=== PATIENT | female | born 1990 | race Caucasian/White ===

== ENCOUNTER 2020-04-13 11:44 | Inpatient (IN) | payer BC, MEDICARE, MEDICAID ==
[~2020-04-13] VITALS: Ht 170.2 cm; Wt 70.9 kg
[~2020-04-13 11:44] MED LIST: ARIP10TA15 PO; ARIP400S3 IM; DIPH25CA83 PO; DOCU-28 PO; HALO5TAB PO; PALI117D IM; PNV11TAB PO
[2020-04-13] MEDS ORDERED: loperamide 2mg capsule PO PRN (19:20)
[2020-04-13] MEDS ORDERED: NICOTINE POLACRILEX 2 MG LOZENGE BC PRN (19:20)
[2020-04-13] MEDS ORDERED: mag hydrox/Alum hydrox/simeth 30ml oral suspension PO PRN (19:20)
[2020-04-13] MEDS ORDERED: acetaminophen 325mg tablet PO PRN (19:20)
[2020-04-13] MEDS ORDERED: divalproex sodium 500mg tablet.DR PO SCH (20:00)
[2020-04-13 21:00] LABS: BASOPHILS % (AUTO) 0.5 % (0-1); EOSINOPHILS % (AUTO) 0.2 % (0-6); HEMOGLOBIN 13.8 g/dl (12.0-16.0); LYMPHOCYTES % (AUTO) 33.5 % (21-51); MEAN CORPUSCULAR HGB CONC 33.8 g/dL (33.0-36.5); MEAN CORPUSCULAR VOLUME 88.8 FL (78-98); MEAN PLATELET VOLUME 6.1 FL (7.4-10.4); MONOCYTES # (AUTO) 0.8 X10'3 (0-0.9); NEUTROPHILS # (AUTO) 5.1 X10'3 (1.8-7.7); NEUTROPHILS % (AUTO) 56.8 % (42-75); PLATELET COUNT 433 X10'3 (140-440); RED BLOOD COUNT 4.61 X10'6 (4.20-5.60); WHITE BLOOD COUNT 8.9 X10'3 (4.5-11.0)
[2020-04-13] MEDS ORDERED: mesalamine 400 mg capsule.DR PO SCH ×2 (21:00→22:31)
[2020-04-13] MEDS: ibuprofen 200mg tablet PO PRN (21:16)
[2020-04-13 21:23] VITALS: BP 130/73
[2020-04-13 21:37] LABS: ALANINE AMINOTRANSFERASE 17 U/L (12-78); ALBUMIN 3.2 G/DL (3.4-5.0); ALBUMIN/GLOBULIN RATIO 0.7 (1.1-1.5); ALKALINE PHOSPHATASE 101 IU/L (46-116); ANION GAP 5 (8-16); ASPARTATE AMINO TRANSFERASE 7 U/L (10-37); BILIRUBIN,TOTAL 0.2 MG/DL (0.1-1.0); BLOOD UREA NITROGEN 7 MG/DL (7-18); BUN/CREATININE RATIO 8.8 (6.6-38.0); CALCIUM 8.8 MG/DL (8.5-10.1); CHLORIDE 106 MMOL/L (99-107); POTASSIUM 4.1 MMOL/L (3.5-5.1); SODIUM 142 MMOL/L (135-145); TOTAL CARBON DIOXIDE 30.7 MMOL/L (24-32); TOTAL PROTEIN 7.7 G/DL (6.4-8.2); eGFR 85 ML/MIN
[2020-04-13 21:44] LABS: GLUCOSE 83 MG/DL (70-104); VALPROATE 69 UG/ML (50-100)
[2020-04-13] MEDS ORDERED: clozapine 25mg tablet PO ONE (21:45)
[2020-04-13 22:27] LABS: CREATINE KINASE 29 U/L (26-192)
[2020-04-13] MEDS ORDERED: divalproex 250mg tablet, delayed-release PO ONE (22:35)
[2020-04-13] MEDS: traZODone 50mg tablet PO PRN (22:49)
[2020-04-13] MEDS: LORazepam 1 MG tablet PO PRN (22:50)
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
[2020-04-14] MEDS: mesalamine 400 mg capsule.DR PO SCH ×3 (07:00→17:00)
[2020-04-14 08:00] VITALS: BP 81/60
[2020-04-14] MEDS ORDERED: ARIPIPRAZOLE 10 MG TABLET PO SCH (08:00)
[2020-04-14] MEDS ORDERED: haloperidol 5mg tablet PO SCH (08:00)
[2020-04-14] MEDS: diphenhydrAMINE 25mg capsule PO SCH ×2 (08:38→21:06)
[2020-04-14] MEDS: divalproex 250mg tablet, delayed-release PO SCH ×2 (08:38→21:13)
[2020-04-14] MEDS: docusate sod 100mg capsule PO SCH ×2 (08:38→21:06)
[2020-04-14] MEDS: nitrofuran/nitrofuran macrocrysal 100 MG capsule PO SCH ×2 (08:44→17:48)
[2020-04-14] MEDS: nicotine 21mg patch - 24 hr TD SCH (08:47)
--- NOTE | 2020-04-14 14:20 | NUR ---
Malnutrition consult, patient eating 100% so far of regular diet. Great appetite. No edema. Normal muscle strength. Does not appear to have malnutrition at this time. Addendum: 04/14/20 at [address] Amended: Links added.
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
[2020-04-14 21:00] VITALS: BP 110/71
[2020-04-14] MEDS ORDERED: clozapine 25mg tablet PO SCH (21:00)
[2020-04-14] MEDS: mesalamine 1.2gm ER tablet PO SCH (21:06)
[2020-04-14] MEDS: polyethylene glycol 3350 17gm powd pack PO SCH (21:07)
[2020-04-14] MEDS: LORazepam 1 MG tablet PO SCH (21:07)
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
[2020-04-15] MEDS: mesalamine 400 mg capsule.DR PO SCH (07:00)
[2020-04-15] MEDS: diphenhydrAMINE 25mg capsule PO SCH ×3 (07:36→20:00)
[2020-04-15] MEDS: mesalamine 1.2gm ER tablet PO SCH ×2 (07:36→21:00)
[2020-04-15] MEDS: docusate sod 100mg capsule PO SCH ×3 (07:36→21:00)
[2020-04-15] MEDS: LORazepam 1 MG tablet PO SCH ×3 (07:37→21:00)
[2020-04-15] MEDS: divalproex 250mg tablet, delayed-release PO SCH ×2 (07:37→21:00)
[2020-04-15] MEDS: nicotine 21mg patch - 24 hr TD SCH ×2 (07:37→08:00)
[2020-04-15] MEDS: nitrofuran/nitrofuran macrocrysal 100 MG capsule PO SCH ×3 (07:43→16:45)
[2020-04-15 08:00] VITALS: BP 97/63
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
[2020-04-15 19:00] VITALS: BP 118/75
[2020-04-15] MEDS: LORazepam 1 MG tablet PO PRN (20:57)
[2020-04-15] MEDS ORDERED: clozapine 25mg tablet PO SCH (21:00)
[2020-04-15] MEDS: polyethylene glycol 3350 17gm powd pack PO SCH (21:01)
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
[2020-04-16 08:00] VITALS: BP 97/58
[2020-04-16] MEDS: docusate sod 100mg capsule PO SCH ×2 (08:47→20:00)
[2020-04-16] MEDS: LORazepam 1 MG tablet PO SCH (08:47)
[2020-04-16] MEDS: divalproex 250mg tablet, delayed-release PO SCH ×2 (08:47→20:46)
[2020-04-16] MEDS: diphenhydrAMINE 25mg capsule PO SCH (08:47)
[2020-04-16] MEDS: mesalamine 1.2gm ER tablet PO SCH ×2 (08:48→20:47)
[2020-04-16] MEDS: nitrofuran/nitrofuran macrocrysal 100 MG capsule PO SCH ×2 (08:48→17:41)
[2020-04-16] MEDS: nicotine 21mg patch - 24 hr TD SCH (10:55)
[2020-04-16] MEDS: diphenhydrAMINE 25mg capsule PO PRN (14:38)
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
[2020-04-16 20:07] VITALS: BP 108/62
[2020-04-16] MEDS: polyethylene glycol 3350 17gm powd pack PO SCH (20:47)
[2020-04-16] MEDS: clozapine 25mg tablet PO SCH (20:47)
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
[2020-04-17] MEDS: docusate sod 100mg capsule PO SCH ×2 (07:39→20:39)
[2020-04-17] MEDS: divalproex 250mg tablet, delayed-release PO SCH ×2 (07:39→20:39)
[2020-04-17] MEDS: mesalamine 1.2gm ER tablet PO SCH ×2 (07:39→20:39)
[2020-04-17] MEDS: nicotine 21mg patch - 24 hr TD SCH (07:40)
[2020-04-17 08:00] VITALS: BP 104/69
[2020-04-17] MEDS: nitrofuran/nitrofuran macrocrysal 100 MG capsule PO SCH ×2 (09:04→16:51)
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
[2020-04-17 20:00] VITALS: BP 112/73
[2020-04-17] MEDS: polyethylene glycol 3350 17gm powd pack PO SCH (20:38)
[2020-04-17] MEDS: clozapine 25mg tablet PO SCH (20:39)
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
[2020-04-18] MEDS: nitrofuran/nitrofuran macrocrysal 100 MG capsule PO SCH ×2 (08:04→17:53)
[2020-04-18] MEDS: divalproex 250mg tablet, delayed-release PO SCH ×2 (08:04→20:41)
[2020-04-18] MEDS: docusate sod 100mg capsule PO SCH ×3 (08:04→20:30)
[2020-04-18] MEDS: mesalamine 1.2gm ER tablet PO SCH ×2 (08:04→20:30)
[2020-04-18] MEDS: nicotine 21mg patch - 24 hr TD SCH (11:18)
--- NOTE | 2020-04-18 11:24 | NUR ---
Veronica from [facility] called to check on d/c plan (ph# [phone]). Informed her that [facility] office will be seeking placement once Nury is stabilized. Customer Support Executive will fax a packet to [facility] as Nury appears to be fairly stable and cooperative. TOM Rene
--- NOTE | 2020-04-18 12:15 | NUR ---
Initial: Pt admit with schizoaffective disorder. Pt with abrasions to right 4th, 5th, and left 5th toe, almost resolved per wound care notes. Currently on a regular diet documented with 75-100% PO intake meeting nutrient needs. LBM 04/17. No nutrition diagnosis at this time. Will continue to follow. Recommendations: 1) Continue regular diet 2) Dorr food preferences: No turkey or pork per diet order 3) Routine bowel care 4) Scaled weights per rx Addendum: 04/18/20 at [address] Amended: Links added.
[2020-04-18] MEDS: diphenhydrAMINE 25mg capsule PO PRN (14:33)
--- NOTE | 2020-04-18 15:19 | NUR ---
PLACEMENT Spoke to Nury's Public Guardian, Bria (ph# [phone]), who reported they will be seeking [facility] placement. Informed her of Nury's progress. Faxed placement packet to [facility] office. TOM Rene
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
[2020-04-18 20:01] VITALS: BP 113/69
[2020-04-18] MEDS: polyethylene glycol 3350 17gm powd pack PO SCH (20:30)
[2020-04-18] MEDS: clozapine 25mg tablet PO SCH (20:30)
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
[2020-04-19 07:48] VITALS: BP 100/63
[2020-04-19] MEDS: nicotine 21mg patch - 24 hr TD SCH (08:36)
[2020-04-19] MEDS: docusate sod 100mg capsule PO SCH ×2 (08:37→20:00)
[2020-04-19] MEDS: divalproex 250mg tablet, delayed-release PO SCH ×2 (08:37→20:25)
[2020-04-19] MEDS: mesalamine 1.2gm ER tablet PO SCH ×2 (08:37→20:26)
[2020-04-19] MEDS: nitrofuran/nitrofuran macrocrysal 100 MG capsule PO SCH ×2 (08:37→17:12)
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
[2020-04-19 19:58] VITALS: BP 124/81
[2020-04-19] MEDS: clozapine 25mg tablet PO SCH (20:26)
[2020-04-19] MEDS: polyethylene glycol 3350 17gm powd pack PO SCH (20:29)
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
[2020-04-20 06:53] LABS: BASOPHILS # (AUTO) 0.1 X10'3 (0-0.2); MEAN PLATELET VOLUME 6.3 FL (7.4-10.4); MONOCYTES # (AUTO) 0.5 X10'3 (0-0.9)
[2020-04-20 06:56] LABS: BASOPHILS % (AUTO) 0.7 % (0-1); EOSINOPHILS % (AUTO) 0.1 % (0-6); HEMOGLOBIN 12.4 g/dl (12.0-16.0); LYMPHOCYTES # (AUTO) 4.7 X10'3 (1.1-4.8); MEAN CORPUSCULAR HEMOGLOBIN 29.8 PG (27.0-31.0); MEAN CORPUSCULAR HGB CONC 33.6 g/dL (33.0-36.5); MEAN CORPUSCULAR VOLUME 88.6 FL (78-98); MONOCYTES % (AUTO) 6.4 % (2-12); NEUTROPHILS # (AUTO) 2.8 X10'3 (1.8-7.7); NEUTROPHILS % (AUTO) 34.8 % (42-75); PLATELET COUNT 261 X10'3 (140-440); RED BLOOD COUNT 4.17 X10'6 (4.20-5.60); RED CELL DISTRIBUTION WIDTH 14.9 % (11.5-14.5); WHITE BLOOD COUNT 8.1 X10'3 (4.5-11.0)
[2020-04-20 07:48] VITALS: BP 91/60
[2020-04-20 07:52] LABS: LYMPHOCYTES % (MANUAL) 57 % (21-51); NEUTROPHILS % (MANUAL) 32 % (42-75); TOTAL CELLS COUNTED 100
[2020-04-20 07:53] LABS: PLATELET ESTIMATE NORMAL
[2020-04-20] MEDS: divalproex 250mg tablet, delayed-release PO SCH ×2 (08:28→20:27)
[2020-04-20] MEDS: docusate sod 100mg capsule PO SCH ×2 (08:28→20:27)
[2020-04-20] MEDS: nitrofuran/nitrofuran macrocrysal 100 MG capsule PO SCH ×2 (08:28→17:17)
[2020-04-20] MEDS: mesalamine 1.2gm ER tablet PO SCH ×2 (08:28→20:27)
[2020-04-20] MEDS: nicotine 21mg patch - 24 hr TD SCH (08:29)
[2020-04-20] MEDS: diphenhydrAMINE 25mg capsule PO PRN ×2 (12:36→21:07)
[2020-04-20] MEDS: acetaminophen 325mg tablet PO PRN (17:27)
[2020-04-20 19:56] VITALS: BP 110/81
[2020-04-20] MEDS: polyethylene glycol 3350 17gm powd pack PO SCH (20:26)
[2020-04-20] MEDS: clozapine 25mg tablet PO SCH (20:27)
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
[2020-04-21 07:46] VITALS: BP 98/52
[2020-04-21] MEDS: nicotine 21mg patch - 24 hr TD SCH (08:20)
[2020-04-21] MEDS: divalproex 250mg tablet, delayed-release PO SCH ×2 (08:21→20:28)
[2020-04-21] MEDS: nitrofuran/nitrofuran macrocrysal 100 MG capsule PO SCH ×2 (08:21→17:30)
[2020-04-21] MEDS: docusate sod 100mg capsule PO SCH ×2 (08:21→20:29)
[2020-04-21] MEDS: mesalamine 1.2gm ER tablet PO SCH ×2 (08:32→20:28)
[2020-04-21] MEDS: LORazepam 1 MG tablet PO PRN (16:09)
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
[2020-04-21] MEDS ORDERED: LORazepam 2 mg/ml vial ONE (16:30)
[2020-04-21] MEDS ORDERED: haloperidol lactate 5mg/ml inj ONE (16:31)
[2020-04-21] MEDS ORDERED: diphenhydrAMINE 50 mg/ml inj ONE (16:31)
[2020-04-21] MEDS: diphenhydrAMINE 25mg capsule PO PRN (16:50)
[2020-04-21] MEDS: polyethylene glycol 3350 17gm powd pack PO SCH (20:28)
[2020-04-21] MEDS: clozapine 100mg tablet PO SCH (20:28)
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
[2020-04-22 08:00] VITALS: BP 93/61
[2020-04-22] MEDS: mesalamine 1.2gm ER tablet PO SCH ×2 (08:24→20:16)
[2020-04-22] MEDS: docusate sod 100mg capsule PO SCH ×2 (08:24→20:16)
[2020-04-22] MEDS: nitrofuran/nitrofuran macrocrysal 100 MG capsule PO SCH ×2 (08:24→17:34)
[2020-04-22] MEDS: divalproex 250mg tablet, delayed-release PO SCH ×2 (08:24→20:16)
[2020-04-22] MEDS: nicotine 21mg patch - 24 hr TD SCH ×2 (08:25→09:20)
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
[2020-04-22] MEDS: LORazepam 1 MG tablet PO PRN (14:50)
[2020-04-22] MEDS: lactose-reduced food (Ensure High Protein) 237ml bottle PO SCH (18:11)
[2020-04-22] MEDS: hydrOXYzine 25 MG tablet PO PRN (18:38)
[2020-04-22 19:40] VITALS: BP 116/48
[2020-04-22] MEDS: clozapine 100mg tablet PO SCH (20:16)
[2020-04-22] MEDS: polyethylene glycol 3350 17gm powd pack PO SCH (20:16)
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
[2020-04-23 07:46] VITALS: BP 93/63
[2020-04-23] MEDS: divalproex 250mg tablet, delayed-release PO SCH ×2 (08:04→20:33)
[2020-04-23] MEDS: mesalamine 1.2gm ER tablet PO SCH ×2 (08:04→20:32)
[2020-04-23] MEDS: docusate sod 100mg capsule PO SCH ×2 (08:04→20:33)
[2020-04-23] MEDS: lactose-reduced food (Ensure High Protein) 237ml bottle PO SCH ×3 (08:05→18:00)
[2020-04-23] MEDS: hydrOXYzine 25 MG tablet PO PRN (08:05)
[2020-04-23] MEDS: nitrofuran/nitrofuran macrocrysal 100 MG capsule PO SCH ×2 (08:06→17:28)
[2020-04-23] MEDS: diphenhydrAMINE 25mg capsule PO PRN ×2 (15:58→17:28)
[2020-04-23] MEDS: OLANZapine 5mg rapidly disint. tablet PO PRN (15:59)
[2020-04-23] MEDS: acetaminophen 325mg tablet PO PRN (17:31)
[2020-04-23 20:00] VITALS: BP 106/72
[2020-04-23] MEDS: polyethylene glycol 3350 17gm powd pack PO SCH (20:32)
[2020-04-23] MEDS: clozapine 100mg tablet PO SCH (20:33)
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
[2020-04-24] MEDS: mesalamine 1.2gm ER tablet PO SCH ×2 (07:44→20:07)
[2020-04-24] MEDS: divalproex 250mg tablet, delayed-release PO SCH ×2 (07:44→20:08)
[2020-04-24] MEDS: nicotine 21mg patch - 24 hr TD SCH (07:44)
[2020-04-24] MEDS: docusate sod 100mg capsule PO SCH ×2 (07:44→20:00)
[2020-04-24] MEDS: hydrOXYzine 25 MG tablet PO PRN ×2 (07:44→14:40)
[2020-04-24 08:00] VITALS: BP 114/68
[2020-04-24] MEDS: lactose-reduced food (Ensure High Protein) 237ml bottle PO SCH ×3 (08:00→18:02)
[2020-04-24] MEDS: nitrofuran/nitrofuran macrocrysal 100 MG capsule PO SCH ×2 (10:17→17:44)
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
[2020-04-24] MEDS: OLANZapine 5mg rapidly disint. tablet PO PRN (14:40)
[2020-04-24] MEDS: diphenhydrAMINE 25mg capsule PO PRN (15:38)
[2020-04-24] MEDS: acetaminophen 325mg tablet PO PRN (18:23)
[2020-04-24 19:35] VITALS: BP 102/58
[2020-04-24] MEDS: clozapine 100mg tablet PO SCH (20:07)
[2020-04-24] MEDS: polyethylene glycol 3350 17gm powd pack PO SCH ×2 (20:38→21:00)
[2020-04-24] MEDS: traZODone 50mg tablet PO PRN ×2 (22:13→23:07)
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
[2020-04-25 08:00] VITALS: BP 90/53
[2020-04-25] MEDS: docusate sod 100mg capsule PO SCH ×2 (08:13→20:14)
[2020-04-25] MEDS: nitrofuran/nitrofuran macrocrysal 100 MG capsule PO SCH ×2 (08:13→18:12)
[2020-04-25] MEDS: mesalamine 1.2gm ER tablet PO SCH ×2 (08:13→20:14)
[2020-04-25] MEDS: divalproex 250mg tablet, delayed-release PO SCH ×2 (08:13→20:15)
[2020-04-25] MEDS: nicotine 21mg patch - 24 hr TD SCH (08:16)
[2020-04-25] MEDS: lactose-reduced food (Ensure High Protein) 237ml bottle PO SCH ×3 (08:18→18:12)
--- NOTE | 2020-04-25 11:27 | NUR ---
Reassessment: Pt PO 75-100% avg meals and 100% ensure high proteins meeting needs. LBM 04/24. No nutrition concerns at this time. Will continue to monitor. Recommendations: 1) Continue regular diet 2) [place] food preferences: No turkey or pork per diet order 3) Routine bowel care 4) Scaled weights per rx Addendum: 04/25/20 at [address] Amended: Links added.
--- NOTE | 2020-04-25 12:36 | NUR ---
Wound Care by RN: Left 4th and 5th toe is completely healed. Right 4th toe is healing well. Small amount of drainage. Patient refused wound care but allowed saline and Band aide. Wound on right thigh is completely healed.
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
[2020-04-25 19:21] VITALS: BP 97/74
[2020-04-25] MEDS: clozapine 100mg tablet PO SCH (20:14)
[2020-04-25] MEDS: polyethylene glycol 3350 17gm powd pack PO SCH (20:15)
--- NOTE | 2020-04-25 21:34 | NUR ---
Pt removed nicotine patch
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
[2020-04-25] MEDS: diphenhydrAMINE 25mg capsule PO PRN (23:14)
[2020-04-25] MEDS: traZODone 50mg tablet PO PRN (23:14)
--- NOTE | 2020-04-26 03:02 | NUR ---
Pt had trouble sleeping requested trazadone and benadryl feeling "tired and annoyed"
[2020-04-26 07:59] VITALS: BP 87/57
[2020-04-26] MEDS: nitrofuran/nitrofuran macrocrysal 100 MG capsule PO SCH ×2 (08:11→17:53)
[2020-04-26] MEDS: docusate sod 100mg capsule PO SCH ×2 (08:11→20:32)
[2020-04-26] MEDS: mesalamine 1.2gm ER tablet PO SCH ×2 (08:11→20:32)
[2020-04-26] MEDS: divalproex 250mg tablet, delayed-release PO SCH ×2 (08:11→20:32)
[2020-04-26] MEDS: nicotine 21mg patch - 24 hr TD SCH (08:14)
[2020-04-26] MEDS: lactose-reduced food (Ensure High Protein) 237ml bottle PO SCH ×3 (08:14→17:53)
--- NOTE | 2020-04-26 10:00 | NUR ---
Group Therapy: Process Group This Clinicians goal for this process group were as follows: (1) Share psychoeducation about core beliefs and how these beliefs shapes how one views reality. (2) Compare and contrast how people with different core beliefs might interpret an identical situation differently. (3) Discuss how changing negative core beliefs to more balanced, helpful, and rational alternatives can lead to improved behaviors and mood. (4) Process Clients thoughts and reflections on this topic within the group milieu. Patient identified experiencing the following levels of anxiety, depression, and anger/irritability while present in the group milieu (0-low; 10-High). Anxiety: 01/01 Depression: 10/04 Anger/irritability: 12/02 Patient presented as properly oriented to person, place, and situation during the process group. Patient was dressed in a white t-shirt, with pink pants that were appropriate within the milieu. She briefly left the milieu on one occasion and returned wearing a pink, [employer], sweatshirt. Psychomotor activity was unremarkable. Patient's thought content was clear, and concrete. Patient's thought process was clear, coherent, and linear. This Clinician did not observe Patient responding to any internal stimuli during session. The rate, latency, and tone of Client's speech was within normal limits. Patient maintained regular eye contact with this Clinician. Patient presented in calm euthymic mood, with congruent affect during the process group. Patient presented as open and cooperative, and was verbally engaged and nonobtrusive within the group milieu. On one occasion, this Clinician asked the patients in the process group to identify a negative core belief, that they may identify with, or have identified with in the past. Patient stated, "I am weak," in response to this question. This Clinician spent some time addressing how a person who truly believed that they weak, either physically, or mentally, would respond to external stimuli that they may use to reinforce that negative core belief, as opposed to information that they may reject because it didn't align with their core belief that they were, "Weak." Jaron Negrete MA, AIR VALUE TESTER Addendum: 04/26/20 at 1143 by Jaron DARLING Amended: Links added.
[2020-04-26] MEDS: diphenhydrAMINE 25mg capsule PO PRN ×2 (12:15→20:32)
[2020-04-26] MEDS: hydrOXYzine 25 MG tablet PO PRN (12:15)
[2020-04-26] MEDS: LORazepam 1 MG tablet PO PRN (14:05)
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
--- NOTE | 2020-04-26 14:47 | NUR ---
PUBLIC GUARDIAN Nury's Public Guardian, Bria (ph# [phone]), called to report that Nury complained to her that she is not getting the proper dose of her medications, in particular depakote and clozapine. Bria send job specification writer Nury's med list and it appears as if Judi was previously on 200mg clozapine qhs and 75 mg qam. Flat Finisher put the med list in Nury's chart. TOM Rene
[2020-04-26 20:01] VITALS: BP 110/80
[2020-04-26] MEDS: clozapine 100mg tablet PO SCH (20:32)
[2020-04-26] MEDS: traZODone 50mg tablet PO PRN (20:32)
[2020-04-26] MEDS: polyethylene glycol 3350 17gm powd pack PO SCH (20:32)
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
[2020-04-27] MEDS: lactose-reduced food (Ensure High Protein) 237ml bottle PO SCH ×3 (08:00→17:30)
[2020-04-27] MEDS: nitrofuran/nitrofuran macrocrysal 100 MG capsule PO SCH ×2 (08:05→17:30)
[2020-04-27] MEDS: docusate sod 100mg capsule PO SCH ×2 (08:05→21:34)
[2020-04-27] MEDS: mesalamine 1.2gm ER tablet PO SCH ×2 (08:05→21:33)
[2020-04-27] MEDS: divalproex 250mg tablet, delayed-release PO SCH ×2 (08:06→21:33)
[2020-04-27] MEDS: nicotine 21mg patch - 24 hr TD SCH (08:06)
--- NOTE | 2020-04-27 10:00 | NUR ---
Group Therapy: Process Group This Clinicians goals for this process group were as follows: (1) Ask scaling questions about patients current anxiety, depression, and irritability symptoms as a check-in. (2) Share psychoeducation about emotional relaxation techniques with patients, including information on: mindfulness, meditation controlled breathing, progressive muscle relaxation, guided visualization. (3) Model and practice controlled breathing, progressive muscle relaxation, and guided visualization with patients within the group milieu. (4) Process patients comments and reflections on the before-mentioned activities after they have participated in them. Patient identified experiencing the following levels of anxiety, depression, and anger/irritability while present in the group milieu (0-low; 10-High). Anxiety: 0/10 Depression: 510 Anger/irritability: / Patient presented as properly oriented x4 during the process group. Patient was dressed in nondescript, personal clothing that were appropriate within the milieu. She wore a nondescript t-shirt and a brown knee-length dress. Psychomotor activity was unremarkable. Patient's thought content was clear, and concrete. Patient's thought process was clear, coherent, and linear. This Clinician did not observe Patient responding to any internal stimuli during session. The rate, latency, and tone of Patients speech was within normal limits. Patient maintained regular eye contact with this Clinician. Patient presented in calm euthymic mood, with congruent affect during the process group. Patient presented as open and cooperative, and was verbally engaged and nonobtrusive within the group milieu. Patient initially entered the group milieu approximately 25 minutes after the beginning of the group. This Clinician welcomed her to group. Patient sat in the back of the room and stated, "I just woke up." Later, at the request of a couple of the female patients, Patient came over to the table where they were at--where this Clinician was also seated--where she became an active participate in the discussion of adaptive emotional relaxation techniques. During psychoeducation about engaging all five sense in developing a visualized safe place, Patient stated when the sense of taste was mentioned that she enjoyed the taste of frozen foods--specifically pizza rolls. This Clinician mentioned that Patient could certainly incorporate that smell into a safe place of her choosing if it aided her in the practice of self-soothing and adaptive emotional self-regulation. Jaron Negrete MA, TEST ENGINE EVALUATOR Addendum: 04/27/20 at 1146 by Jaron DARLING Amended: Links added.
[2020-04-27] MEDS: hydrOXYzine 25 MG tablet PO PRN (12:36)
[2020-04-27] MEDS: diphenhydrAMINE 25mg capsule PO PRN (12:36)
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
[2020-04-27] MEDS: magnesium hydroxide 30ml (MOM) UD suspension PO PRN (16:52)
[2020-04-27 19:00] VITALS: BP 117/74
[2020-04-27] MEDS: polyethylene glycol 3350 17gm powd pack PO SCH (21:33)
[2020-04-27] MEDS: clozapine 100mg tablet PO SCH (21:33)
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
[2020-04-28] MEDS: nicotine 21mg patch - 24 hr TD SCH ×2 (08:00→08:38)
[2020-04-28] MEDS: mesalamine 1.2gm ER tablet PO SCH ×2 (08:37→20:52)
[2020-04-28] MEDS: nitrofuran/nitrofuran macrocrysal 100 MG capsule PO SCH ×2 (08:37→17:22)
[2020-04-28] MEDS: lactose-reduced food (Ensure High Protein) 237ml bottle PO SCH ×3 (08:38→18:07)
[2020-04-28] MEDS: divalproex 250mg tablet, delayed-release PO SCH ×2 (08:38→20:51)
[2020-04-28] MEDS: docusate sod 100mg capsule PO SCH (08:38)
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
[2020-04-28] MEDS: OLANZapine 5mg rapidly disint. tablet PO PRN (12:40)
[2020-04-28] MEDS: diphenhydrAMINE 25mg capsule PO PRN (12:40)
[2020-04-28 19:23] VITALS: BP 127/81
[2020-04-28] MEDS: calcium polycarbophil 625mg tablet PO SCH (20:51)
[2020-04-28] MEDS: clozapine 100mg tablet PO SCH (20:51)
[2020-04-28] MEDS: clozapine 25mg tablet PO SCH (20:52)
[2020-04-28] MEDS: polyethylene glycol 3350 17gm powd pack PO SCH (20:52)
[2020-04-28] MEDS: docusate sod 250mg capsule PO SCH (20:52)
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
[2020-04-29] MEDS: nicotine 21mg patch - 24 hr TD SCH (08:31)
[2020-04-29] MEDS: divalproex 250mg tablet, delayed-release PO SCH ×2 (08:32→20:29)
[2020-04-29] MEDS: mesalamine 1.2gm ER tablet PO SCH ×2 (08:32→20:28)
[2020-04-29] MEDS: nitrofuran/nitrofuran macrocrysal 100 MG capsule PO SCH ×2 (08:32→17:07)
[2020-04-29] MEDS: docusate sod 250mg capsule PO SCH ×2 (08:32→20:29)
[2020-04-29] MEDS: calcium polycarbophil 625mg tablet PO SCH ×2 (08:32→20:28)
[2020-04-29] MEDS: lactose-reduced food (Ensure High Protein) 237ml bottle PO SCH ×3 (08:35→17:21)
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
[2020-04-29] MEDS: ibuprofen 200mg tablet PO PRN (17:07)
[2020-04-29 19:00] VITALS: BP 112/71
[2020-04-29] MEDS: clozapine 25mg tablet PO SCH (20:28)
[2020-04-29] MEDS: clozapine 100mg tablet PO SCH (20:28)
[2020-04-29] MEDS: polyethylene glycol 3350 17gm powd pack PO SCH (20:28)
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
[2020-04-30 08:00] VITALS: BP 111/74
[2020-04-30] MEDS: divalproex 250mg tablet, delayed-release PO SCH (08:33)
[2020-04-30] MEDS: nitrofuran/nitrofuran macrocrysal 100 MG capsule PO SCH ×2 (08:33→19:01)
[2020-04-30] MEDS: docusate sod 250mg capsule PO SCH ×2 (08:33→21:53)
[2020-04-30] MEDS: mesalamine 1.2gm ER tablet PO SCH ×2 (08:34→21:53)
[2020-04-30] MEDS: calcium polycarbophil 625mg tablet PO SCH ×2 (08:34→21:53)
[2020-04-30] MEDS: nicotine 21mg patch - 24 hr TD SCH (08:36)
[2020-04-30] MEDS: lactose-reduced food (Ensure High Protein) 237ml bottle PO SCH ×3 (08:40→18:00)
[2020-04-30] MEDS: ibuprofen 200mg tablet PO PRN (16:15)
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
[2020-04-30] MEDS: magnesium hydroxide 30ml (MOM) UD suspension PO PRN (17:21)
[2020-04-30 19:27] VITALS: BP 109/78
[2020-04-30] MEDS ORDERED: divalproex 250mg tablet, delayed-release PO ONE (21:00)
[2020-04-30] MEDS: polyethylene glycol 3350 17gm powd pack PO SCH (21:53)
[2020-04-30] MEDS: clozapine 100mg tablet PO SCH (21:53)
[2020-04-30] MEDS: clozapine 25mg tablet PO SCH (21:53)
[2020-04-30] MEDS: divalproex sodium 500mg tablet.DR PO SCH (21:54)
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
[2020-05-01 07:34] VITALS: BP 90/60
[2020-05-01] MEDS ORDERED: divalproex 250mg tablet, delayed-release PO SCH (08:00)
[2020-05-01] MEDS: lactose-reduced food (Ensure High Protein) 237ml bottle PO SCH ×3 (08:00→18:38)
[2020-05-01] MEDS: nicotine 21mg patch - 24 hr TD SCH (09:39)
[2020-05-01] MEDS: calcium polycarbophil 625mg tablet PO SCH ×2 (09:39→21:19)
[2020-05-01] MEDS: mesalamine 1.2gm ER tablet PO SCH ×2 (09:40→21:18)
[2020-05-01] MEDS: docusate sod 250mg capsule PO SCH ×2 (09:40→21:18)
[2020-05-01] MEDS: nitrofuran/nitrofuran macrocrysal 100 MG capsule PO SCH (09:40)
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
[2020-05-01] MEDS: diphenhydrAMINE 25mg capsule PO PRN (16:51)
[2020-05-01] MEDS: LORazepam 1 MG tablet PO PRN (18:35)
[2020-05-01] MEDS ORDERED: divalproex sodium 500mg tablet.DR PO SCH (21:00)
[2020-05-01] MEDS: divalproex sodium 500mg tablet.DR PO SCH (21:19)
[2020-05-01] MEDS: clozapine 25mg tablet PO SCH (21:19)
[2020-05-01] MEDS: clozapine 100mg tablet PO SCH (21:19)
[2020-05-01] MEDS: polyethylene glycol 3350 17gm powd pack PO SCH (21:19)
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
[2020-05-02 08:00] VITALS: BP 91/58
[2020-05-02] MEDS: mesalamine 1.2gm ER tablet PO SCH ×2 (08:29→21:10)
[2020-05-02] MEDS: docusate sod 250mg capsule PO SCH ×2 (08:29→21:09)
[2020-05-02] MEDS: calcium polycarbophil 625mg tablet PO SCH ×2 (08:29→21:10)
[2020-05-02] MEDS: lactose-reduced food (Ensure High Protein) 237ml bottle PO SCH ×3 (08:30→18:00)
[2020-05-02] MEDS: nicotine 21mg patch - 24 hr TD SCH (08:30)
--- NOTE | 2020-05-02 10:00 | NUR ---
Group Therapy: Process Group This Clinicians goal for this process group were as follows: (1) Ask scaling questions about patients current anxiety, depression, and irritability symptoms as a check-in (2) Introduce and provide psychoeducation on distress tolerance skills. (2) Introduce the concept of radical acceptance and using our senses to self-soothe. (3) Share the acronym, Lillian.C.C.[email or web address].P.T.[email or web address] Activities; Contributing; Comparisons; Emotions; Pushing Away; Thoughts; and Sensations (4) Process Clients thoughts and reflections on this topic within the group milieu. Patient identified experiencing the following levels of anxiety, depression, and anger/irritability while present in the group milieu (0-low; 10-High). Anxiety: 05/04 Depression: 0/10 Anger/irritability: 09/03 Patient presented as properly oriented x4 during the process group. Patient was dressed in [facility] scrubs within the milieu. Psychomotor activity was unremarkable. Patient wore headphones within the milieu. In this context, Patient identified her anxiety symptoms as being very high--9/10. This Clinician asked her what said anxiety symptoms felt like in her body. Patient reported that she didn't feel any anxiety symptoms in her body. She then pointed to her head, stating, "I feel distracted." She then shared that listening to music helped to soothe her. Patient's thought content was clear, and concrete. Patient's thought process was clear, coherent, and linear. This Clinician did not observe Patient responding to any internal stimuli during session. The rate, latency, and tone of Patients speech was within normal limits. Patient maintained regular eye contact with this Clinician. Patient presented in calm euthymic mood, with congruent affect during the process group. Patient presented as open and cooperative, and was verbally engaged and nonobtrusive within the group milieu. Patient wore her headphones during the process group, but appeared to track with this Clinician's comments and was often observed making eye contact with other patient's within the process group when they were talking. When specifically addressed by this Clinician, Patient would calmly take off her head phones and answer questions that were directed to her. During discussion on temporary distraction techniques--A.C.C.E.P.T.S.--Patient was able to identify several interventions that she could utilize to reduce the acuity of unwanted symptoms of emotional escalation, e.g., exercising, helping her mother with tasks, listening to music, etc.. Jaron Negrete MA, ACCESS MANAGER Addendum: 05/02/20 at 1128 by Jaron Negrete SS Amended: Links added.
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
--- NOTE | 2020-05-02 13:59 | NUR ---
PLACEMENT Faxed med list and labs to [facility] office at their request for placement purposes. TOM Rene
[2020-05-02] MEDS: LORazepam 1 MG tablet PO PRN (14:07)
--- NOTE | 2020-05-02 14:07 | NUR ---
Reassessment: Pt continues with 75-100% PO intake on regular diet with 100% PO intake of Ensure High Protein TID exceeding nutrient needs. LBM 05/01. No further nutrition intervention warranted at this time. Will continue to follow. Recommendations: 1) Continue regular diet 2) [place] food preferences: No turkey or pork per diet order 3) Consider discontinuation of Ensure High Protein TID given adequate PO intake of meals meeting estimated nutrient needs 4) Routine bowel care 5) Scaled weights per rx Addendum: 05/02/20 at [address] Amended: Links added.
[2020-05-02 20:17] VITALS: BP 110/69
[2020-05-02] MEDS: divalproex sodium 500mg tablet.DR PO SCH (21:09)
[2020-05-02] MEDS: clozapine 25mg tablet PO SCH (21:09)
[2020-05-02] MEDS: polyethylene glycol 3350 17gm powd pack PO SCH (21:09)
[2020-05-02] MEDS: clozapine 100mg tablet PO SCH (21:09)
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
[2020-05-03] MEDS: calcium polycarbophil 625mg tablet PO SCH ×2 (07:35→20:13)
[2020-05-03] MEDS: docusate sod 250mg capsule PO SCH ×2 (07:35→20:13)
[2020-05-03] MEDS: mesalamine 1.2gm ER tablet PO SCH ×2 (07:35→20:13)
[2020-05-03] MEDS: nicotine 21mg patch - 24 hr TD SCH (07:42)
[2020-05-03 08:13] VITALS: BP 99/64
[2020-05-03] MEDS: lactose-reduced food (Ensure High Protein) 237ml bottle PO SCH ×3 (08:41→18:25)
--- NOTE | 2020-05-03 10:00 | NUR ---
Group Therapy: Process Group This Clinicians goal for this process group were as follows: (1) Ask scaling questions about Patients current anxiety, depression, and irritability symptoms as a check-in. (2) Provide psychoeducation on differences between passive, passive-aggressive, assertive, and aggressive forms of communication. (3) Provide psychoeducation on fair fighting rules to illustrate principles of assertive communication. (4) Process Patients thoughts and reflections on this topic within the group milieu. Patient identified experiencing the following levels of anxiety, depression, and anger/irritability while present in the group milieu (0-low; 10-High). Anxiety: 0/10 Depression: 2/10 Anger/irritability: 0/10 Patient presented as properly oriented x4 during the process group. Patient was dressed in [facility] hospital scrubs within the milieu. Psychomotor activity was unremarkable. Patient's thought content was clear, and concrete. Patient's thought process was clear, coherent, and linear. This Clinician did not observe Patient responding to any internal stimuli during session. The rate, latency, and tone of Patients speech was within normal limits. Patient maintained regular eye contact with this Clinician. Patient presented in calm euthymic mood, with congruent affect during the process group. Patient presented as open and cooperative, and was verbally engaged and nonobtrusive within the group milieu. This Clinician asked Patient what skills she has utilized in the past to avoid entering into conversations that were marked by arguments or conflict. Patient reported that she tried to take, "Time outs," to avoid being in a situation that would escalate the conflict. She noted that she frequently tries to walk away when she can to avoid situations getting to the point were arguments and maladaptive communication will occur. Jaron Negrete MA, FURNITURE POLISHER Addendum: 05/03/20 at 1144 by Jaron Negrete Amended: Links added.
[2020-05-03] MEDS: LORazepam 1 MG tablet PO PRN (12:02)
[2020-05-03 14:09] LABS: PREOP URINE HCG NEGATIVE (NEGATIVE)
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
--- NOTE | 2020-05-03 15:46 | NUR ---
ACCEPTED AT [facility] has been accepted at [facility]. Faxed med list, neg test, and 2 weeks of vitals to [facility] office. TOM Rene
[2020-05-03 19:52] VITALS: BP 109/72
[2020-05-03] MEDS: divalproex sodium 500mg tablet.DR PO SCH (20:13)
[2020-05-03] MEDS: polyethylene glycol 3350 17gm powd pack PO SCH (20:13)
[2020-05-03] MEDS: clozapine 100mg tablet PO SCH (20:14)
[2020-05-03] MEDS: clozapine 25mg tablet PO SCH (20:14)
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
[2020-05-04 08:00] VITALS: BP 102/58
[2020-05-04] MEDS: calcium polycarbophil 625mg tablet PO SCH ×2 (08:33→20:13)
[2020-05-04] MEDS: docusate sod 250mg capsule PO SCH ×2 (08:33→20:00)
[2020-05-04] MEDS: nicotine 21mg patch - 24 hr TD SCH (08:33)
[2020-05-04] MEDS: mesalamine 1.2gm ER tablet PO SCH ×2 (08:34→20:13)
[2020-05-04] MEDS: lactose-reduced food (Ensure High Protein) 237ml bottle PO SCH ×3 (08:35→18:20)
--- NOTE | 2020-05-04 10:00 | NUR ---
Group Therapy: Process Group This Clinicians goal for this process group were as follows: (1) Ask scaling questions about patients current anxiety, depression, and irritability symptoms as a check-in. (2) Provide psychoeducation on grounding activities as a means to reduce the acuity of unwanted mental health symptoms. (3) Introduce mandalas as one such activity for group participation within the milieu. (4) Check-in with patients during the coloring activity to reinforce the importance of engaging in adaptive grounding activities. Patient presented as properly oriented x4 during the process group. Patient was dressed in nondescript, personal clothing that were appropriate within the milieu. Psychomotor activity was unremarkable. Patient's thought content was clear, and concrete. Patient's thought process was clear, coherent, and linear. This Clinician did not observe Patient responding to any internal stimuli during session. The rate, latency, and tone of Patients speech was within normal limits. Patient maintained intermittent eye contact with this Clinician. Patient presented in calm euthymic mood, with congruent affect during the process group. Patient presented as cooperative, and nonobtrusive within the process group; however, she was only present for a very brief period of time after arriving to the process group approximately 20 minutes after 10:00 AM. This Clinician greeted Patient as she arrived to the process group. She quietly sat down at one of the group tables, before reporting that her mouth was dry. Patient then stood up from the table and quietly left the group milieu. She did not return. This Clinician did not have the opportunity to ask Patient scaling questions about her anxiety, depression, and anger/irritability symptoms before she left. Jaron Negrete MA, KITCHEN DESIGNER Addendum: 05/04/20 at 1123 by Jaron Negrete SS Amended: Links added.
[2020-05-04] MEDS ORDERED: tuberculin, purif. prot. deriv. 5 units/0.1ml ID ONE (14:10)
[2020-05-04] MEDS: LORazepam 1 MG tablet PO PRN (14:19)
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
[2020-05-04] MEDS: divalproex sodium 500mg tablet.DR PO SCH (20:13)
[2020-05-04] MEDS: traZODone 50mg tablet PO PRN (20:13)
[2020-05-04 20:16] VITALS: BP 122/68
[2020-05-04] MEDS: clozapine 100mg tablet PO SCH (20:29)
[2020-05-04] MEDS: clozapine 25mg tablet PO SCH (20:29)
[2020-05-04] MEDS: polyethylene glycol 3350 17gm powd pack PO SCH (20:30)
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
[2020-05-05 07:20] VITALS: BP 97/62
[2020-05-05] MEDS: calcium polycarbophil 625mg tablet PO SCH ×2 (08:00→20:19)
[2020-05-05] MEDS: docusate sod 250mg capsule PO SCH ×2 (08:00→20:00)
[2020-05-05] MEDS: mesalamine 1.2gm ER tablet PO SCH ×2 (08:11→20:19)
[2020-05-05] MEDS: diphenhydrAMINE 25mg capsule PO PRN (08:12)
[2020-05-05] MEDS: nicotine 21mg patch - 24 hr TD SCH (08:12)
[2020-05-05] MEDS: OLANZapine 5mg rapidly disint. tablet PO PRN (08:12)
[2020-05-05] MEDS: lactose-reduced food (Ensure High Protein) 237ml bottle PO SCH ×3 (08:14→18:03)
--- NOTE | 2020-05-05 10:00 | NUR ---
Group Therapy: Process Group This Clinicians goals for this process group were as follows: (1) Ask scaling questions about Patients current anxiety, depression, and irritability symptoms as a check-in. (2) Share psychoeducation about emotional escalation as it relates to stress and negative symptoms, Fight, flight, freeze. (2) Provide psychoeducation on the STOPP acronym: Stop, Take a Breath, Observe the situation, Put things into perspective, and, Practice what works. (3) Share psychoeducation on principles of mindfulness and emotional relaxation techniques that Patients may utilize to reduce the acuity of unwanted emotional escalation. (5) Process Clients thoughts and reflections on this topic within the group milieu. Patient identified experiencing the following levels of anxiety, depression, and anger/irritability while present in the group milieu (0-low; 10-High). Anxiety: 0/10 Depression: 0/10 Anger/irritability: 0/10 Patient presented as properly oriented x4 during the process group. Patient was dressed in nondescript, personal clothing that were appropriate within the milieu. Psychomotor activity was unremarkable. Patient's thought content was clear, and concrete. Patient's thought process was clear, coherent, and linear. This Clinician did not observe Patient responding to any internal stimuli during session. The rate, latency, and tone of Patients speech was within normal limits. Patient maintained regular eye contact with this Clinician. Patient presented in calm euthymic mood, with congruent affect during the process group. Patient presented as open and cooperative, and was verbally engaged and nonobtrusive within the group milieu. Patient was engaged in talking about the STOPP method of emotional deescalation. Patient reported that she often tried to smoke, or call a family member or friend when she needed to calm down. This Clinician noted the health dangers of smoking, but tried to reframe away from smoking to emphasizing the importance of breathing as being important to calm the body down. Jaron Negrete MA, ASSISTANT STRENGTH COACH Addendum: 05/05/20 at 1135 by Jaron DARLING Amended: Links added.
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
[2020-05-05] MEDS: LORazepam 1 MG tablet PO PRN (16:59)
[2020-05-05 19:57] VITALS: BP 112/70
[2020-05-05] MEDS: clozapine 25mg tablet PO SCH (20:29)
[2020-05-05] MEDS: polyethylene glycol 3350 17gm powd pack PO SCH (20:29)
[2020-05-05] MEDS: clozapine 100mg tablet PO SCH (20:29)
[2020-05-05] MEDS: divalproex sodium 500mg tablet.DR PO SCH (20:30)
[2020-05-05] MEDS: traZODone 50mg tablet PO PRN (20:31)
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
[2020-05-06 07:45] VITALS: BP 96/68
[2020-05-06] MEDS: calcium polycarbophil 625mg tablet PO SCH ×2 (08:16→20:38)
[2020-05-06] MEDS: lactose-reduced food (Ensure High Protein) 237ml bottle PO SCH ×3 (08:16→18:31)
[2020-05-06] MEDS: mesalamine 1.2gm ER tablet PO SCH ×2 (08:16→20:37)
[2020-05-06] MEDS: docusate sod 250mg capsule PO SCH ×2 (08:16→20:38)
[2020-05-06] MEDS: nicotine 21mg patch - 24 hr TD SCH (08:16)
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
[2020-05-06] MEDS: diphenhydrAMINE 25mg capsule PO PRN (15:29)
[2020-05-06] MEDS: OLANZapine 5mg rapidly disint. tablet PO PRN (15:29)
[2020-05-06 19:40] VITALS: BP 106/73
[2020-05-06] MEDS: polyethylene glycol 3350 17gm powd pack PO SCH (20:37)
[2020-05-06] MEDS: divalproex sodium 500mg tablet.DR PO SCH (20:38)
[2020-05-06] MEDS: clozapine 25mg tablet PO SCH (20:39)
[2020-05-06] MEDS: clozapine 100mg tablet PO SCH (20:39)
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
[2020-05-07] MEDS: calcium polycarbophil 625mg tablet PO SCH ×2 (08:08→20:11)
[2020-05-07] MEDS: mesalamine 1.2gm ER tablet PO SCH ×2 (08:08→20:10)
[2020-05-07] MEDS: nicotine 21mg patch - 24 hr TD SCH (08:08)
[2020-05-07] MEDS: docusate sod 250mg capsule PO SCH ×2 (08:09→20:09)
[2020-05-07] MEDS: lactose-reduced food (Ensure High Protein) 237ml bottle PO SCH ×3 (08:09→18:11)
[2020-05-07 08:32] VITALS: BP 110/63
[2020-05-07] MEDS: diphenhydrAMINE 25mg capsule PO PRN (11:21)
[2020-05-07] MEDS: OLANZapine 5mg rapidly disint. tablet PO PRN (11:21)
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
[2020-05-07] MEDS ORDERED: LORazepam 1 MG tablet PO ONE (14:35)
[2020-05-07] MEDS ORDERED: haloperidol 5mg tablet PO ONE (14:35)
[2020-05-07 20:00] VITALS: BP 105/70
[2020-05-07] MEDS: clozapine 25mg tablet PO SCH (20:10)
[2020-05-07] MEDS: clozapine 100mg tablet PO SCH (20:10)
[2020-05-07] MEDS: polyethylene glycol 3350 17gm powd pack PO SCH (20:11)
[2020-05-07] MEDS: divalproex sod 250mg ER (24-hour) tablet PO SCH (20:11)
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
[2020-05-08 08:00] VITALS: BP 94/62
[2020-05-08] MEDS: nicotine 21mg patch - 24 hr TD SCH ×2 (08:00→08:13)
[2020-05-08] MEDS: calcium polycarbophil 625mg tablet PO SCH ×2 (08:12→20:18)
[2020-05-08] MEDS: mesalamine 1.2gm ER tablet PO SCH ×2 (08:12→20:18)
[2020-05-08] MEDS: docusate sod 250mg capsule PO SCH ×2 (08:12→20:17)
[2020-05-08] MEDS: lactose-reduced food (Ensure High Protein) 237ml bottle PO SCH ×3 (08:13→18:07)
--- NOTE | 2020-05-08 09:57 | NUR ---
Faxed chest x-ray results to [facility] office for placement purposes at [place]. TOM Rene
--- NOTE | 2020-05-08 10:00 | NUR ---
Group Therapy: Process Group This Clinicians goal for this process group were as follows: (1) Ask scaling questions about Patients current anxiety, depression, and irritability symptoms as a check-in. (2) Provide psychoeducation on emotional and situational stressors. (3) Discuss thoughts and feelings that patients experience when they have experienced an emotional and/or situational stressor. (4) Provide psychoeducation on interventions, as actions patients can take to reduce feelings of emotional escalation caused by situational and emotional stressors. (5) Process Patients thoughts and reflections on this topic within the group milieu. Patient identified experiencing the following levels of anxiety, depression, and anger/irritability while present in the group milieu (0-low; 10-High). Anxiety: 0/10 Depression: 0/10 Anger/irritability: 0/10 Patient presented as properly oriented x4 during the process group. Patient a red sweatshirt and blue rajan jeans that were appropriate within the milieu. Psychomotor activity was unremarkable. Patient's thought content was clear, and concrete. Patient's thought process was clear, coherent, and linear. This Clinician did not observe Patient responding to any internal stimuli during session. The rate, latency, and tone of Patients speech was within normal limits. Patient maintained intermittent eye contact with this Clinician. Patient presented in calm mood, with congruent affect during the process group. Patient presented as cooperative, verbally subdued and nonobtrusive within the group milieu. Patient was present at the onset of the process group, reporting that she was not experiencing any symptoms of anxiety, depression, and anger/irritability. She left the process group after about 5 minutes and was away from the milieu for approximately 10 minutes before she returned. Patient identified that a coping skill/intervention that she often used to try to calm down during stressful situations was to, "Take a walk." Jaron Negrete MA, RENTAL CAR FERRY DRIVER Addendum: 05/08/20 at 1135 by Jaron Negrete Amended: Links added.
[2020-05-08] MEDS: OLANZapine 5mg rapidly disint. tablet PO PRN (13:29)
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
[2020-05-08 20:16] VITALS: BP 127/67
[2020-05-08] MEDS: divalproex sod 250mg ER (24-hour) tablet PO SCH (20:17)
[2020-05-08] MEDS: clozapine 25mg tablet PO SCH (20:18)
[2020-05-08] MEDS: polyethylene glycol 3350 17gm powd pack PO SCH (20:18)
[2020-05-08] MEDS: clozapine 100mg tablet PO SCH (20:18)
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
[2020-05-09] MEDS: docusate sod 250mg capsule PO SCH ×2 (07:19→18:59)
[2020-05-09] MEDS: mesalamine 1.2gm ER tablet PO SCH ×2 (07:20→19:00)
[2020-05-09] MEDS: nicotine 21mg patch - 24 hr TD SCH (07:20)
[2020-05-09] MEDS: calcium polycarbophil 625mg tablet PO SCH ×2 (07:20→19:00)
[2020-05-09 08:00] VITALS: BP 104/72
[2020-05-09] MEDS: lactose-reduced food (Ensure High Protein) 237ml bottle PO SCH ×3 (08:00→18:08)
[2020-05-09] MEDS: OLANZapine 5mg rapidly disint. tablet PO PRN ×2 (09:49→18:59)
[2020-05-09] MEDS: magnesium hydroxide 30ml (MOM) UD suspension PO PRN (09:50)
--- NOTE | 2020-05-09 10:00 | NUR ---
Group Therapy: Process Group This Clinicians goals for this process group were as follows: (1) Ask scaling questions about Patients current anxiety, depression, and irritability symptoms as a check-in. (2) Share with Patients psychoeducation about the importance of being able to identify safe, and supportive people who can assist them with their mental and emotional needs. (3) Share psychoeducation on interpersonal boundaries and considerations to assist Patients in developing the ability to discern which groups and individuals will be helpful in assisting them during times of emotional escalation and crisis. (4) Engage Patients in discussion of the topics discussed within the group milieu. Patient identified experiencing the following levels of anxiety, depression, and anger/irritability while present in the group milieu (0-low; 10-High). Anxiety: 10/10 Depression: 0/10 Anger/irritability: 0/10 Patient presented as properly oriented x4 during the process group. Patient was dressed in nondescript, personal clothing that were appropriate within the milieu. She wore a white shirt with no sleeves, which left her shoulders exposed and black rajan jeans. Psychomotor activity was unremarkable. Patient's thought content was clear, and concrete. Patient stated that her anxiety level was very high--10/10--she reported that her heart was racing. Patient's thought process was clear, coherent, and linear. This Clinician did not observe Patient responding to any internal stimuli during session. Patient did laugh a couple times during the process group; however, it was this Clinician's impression that she was responding to the behavior of other peers within the process group. However, during one such episode of laughter Patient stated, "I'm schizophrenic." The rate, latency, and tone of Patients speech was within normal limits. Patient maintained intermittent eye contact with this Clinician. Patient presented in calm euthymic mood, with congruent affect during the process group. Patient presented as open and cooperative, and was verbally engaged and nonobtrusive within the group milieu. At the beginning of the process group. This Clinician asked Patient to remove head phones that she was wearing as it was brought recently to this Clinician's attention that Patient's were not allowed to wear head phones during the process group. In the context of developing safe interpersonal boundaries and exploring questions that one might ask to see if a person could eventually be trusted as a support person in her mental health situation, Patient acknowledged the importance of being discerning in how much to share with a stranger to ensure that they did not become "Weirded out," by a person sharing too much sensitive information with them without already having an established relationship with them. Jaron Negrete MA, BEHAVIORAL HEALTH TECH Addendum: 05/09/20 at 1145 by Jaron DARLING Amended: Links added.
--- NOTE | 2020-05-09 12:01 | NUR ---
F/u (05/09): Pt PO 100% ONS and 75-100% fluctuating PO meals meeting needs. LBM 05/06 documented as constipated though receiving colace. No nutrition concerns at this time. Will continue to monitor. Recommendations: 1) Continue regular diet 2) [place] food preferences: No turkey or pork per diet order 3) Consider discontinuation of Ensure High Protein TID given adequate PO intake of meals meeting estimated nutrient needs 4) Routine bowel care 5) Scaled weights per rx Addendum: 05/09/20 at [address] Amended: Links added.
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
[2020-05-09] MEDS: diphenhydrAMINE 25mg capsule PO PRN (18:59)
[2020-05-09] MEDS: divalproex sod 250mg ER (24-hour) tablet PO SCH (18:59)
[2020-05-09] MEDS: traZODone 50mg tablet PO PRN (18:59)
[2020-05-09] MEDS: LORazepam 1 MG tablet PO PRN (18:59)
[2020-05-09] MEDS: clozapine 100mg tablet PO SCH (18:59)
[2020-05-09] MEDS: clozapine 25mg tablet PO SCH (19:00)
[2020-05-09] MEDS: polyethylene glycol 3350 17gm powd pack PO SCH (19:00)
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
[2020-05-10] MEDS: mesalamine 1.2gm ER tablet PO SCH ×2 (07:52→20:23)
[2020-05-10] MEDS: docusate sod 250mg capsule PO SCH ×2 (07:52→20:22)
[2020-05-10] MEDS: calcium polycarbophil 625mg tablet PO SCH ×2 (07:52→20:23)
[2020-05-10] MEDS: nicotine 21mg patch - 24 hr TD SCH (07:52)
[2020-05-10 08:43] VITALS: BP 114/71
[2020-05-10] MEDS: lactose-reduced food (Ensure High Protein) 237ml bottle PO SCH ×3 (08:49→17:58)
--- NOTE | 2020-05-10 10:00 | NUR ---
Group Therapy: Process Group This Clinicians goals for this process group were as follows: (1) Ask scaling questions about Patients current anxiety, depression, and irritability symptoms as a check-in. (2) Share psychoeducation about automatic thoughts and cognitive distortions. (3) Share psychoeducation on CBT thought-stopping and, thought-reframing. (4) Discuss strategies for identifying negative, unhelpful, and/or irrational thoughts as quickly as possible to avoid unwanted escalation of mental health symptoms. (5) Process Clients thoughts and reflections on this topic within the group milieu. Patient identified experiencing the following levels of anxiety, depression, and anger/irritability while present in the group milieu (0-low; 10-High). Anxiety: 0/10 Depression: 2/10 Anger/irritability: 0/10 Patient presented as properly oriented x4 during the process group. Patient was dressed in nondescript, personal clothing that were appropriate within the milieu. She wore a purple shirt, with blue, rajan jeans. Psychomotor activity was unremarkable. Patient's thought content was clear, and concrete. Patient's thought process was clear, coherent, and linear. This Clinician did not observe Patient responding to any internal stimuli during session. The rate, latency, and tone of Patients speech was within normal limits. Patient maintained regular eye contact with this Clinician. Patient presented in calm euthymic mood, with congruent affect during the process group. Patient presented as open, cooperative and nonobtrusive within the group milieu, though she was only present for the first five minutes of the process group before exiting. She returned briefly after approximately 35 minutes and handed another Patient a bracelet, before exiting the milieu for the final time. She did not participate in the process group discussion on thinking errors, and the CBT interventions of thought-stopping and thought-reframing. Patient reported that her anxiety symptoms were, "0/10," today, which was very low. This Clinician mentioned that yesterday during check-ins in the process group she reported that her anxiety was very high, "10/10." He asked her what led to the positive reduction in her anxiety symptoms. Patient stated that she had got some, "Rest." Jaron Negrete MA, WILL CALL ORDER CLERK Addendum: 05/10/20 at 1138 by Jaron Negrete SS Amended: Links added.
--- NOTE | 2020-05-10 14:16 | NUR ---
DISCHARGE 05/11/20 AT 8:15 AM [facility] will be picked up at 8:15 AM tomorrow and will be transported to [facility] in [place]. Her meds need to get called in to [facility] (ph# [phone]). TOM Rene
[2020-05-10] MEDS ORDERED: MESA1.2T PO (14:21)
[2020-05-10] MEDS ORDERED: TRAZ-251 PO (14:21)
[2020-05-10] MEDS ORDERED: CLOZ100T13 PO (14:21)
[2020-05-10] MEDS ORDERED: DOCU100C40 PO (14:21)
[2020-05-10] MEDS ORDERED: DIVA500T9 PO (14:21)
[2020-05-10] MEDS ORDERED: DIPH-423 PO (14:21)
[2020-05-10] MEDS ORDERED: CLOZ25TA12 PO (14:21)
[2020-05-10] MEDS ORDERED: NICO-687 TD (14:21)
--- NOTE | 2020-05-10 14:58 | NUR ---
DISCHARGED CANCELLED [facility] will NOT be discharging tomorrow. [facility] did not open today as planned. They are having licensing issues and it is unknown when that will be resolved. TOM Rene
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
[2020-05-10 18:37] LABS: BASOPHILS # (AUTO) 0.1 X10'3 (0-0.2); BASOPHILS % (AUTO) 0.8 % (0-1); EOSINOPHILS # (AUTO) 0.1 X10'3 (0-0.9); EOSINOPHILS % (AUTO) 0.6 % (0-6); HEMATOCRIT 39.5 % (35.0-45.0); HEMOGLOBIN 13.3 g/dl (12.0-16.0); LYMPHOCYTES # (AUTO) 4.3 X10'3 (1.1-4.8); LYMPHOCYTES % (AUTO) 43.7 % (21-51); MEAN CORPUSCULAR HEMOGLOBIN 29.6 PG (27.0-31.0); MEAN CORPUSCULAR HGB CONC 33.6 g/dL (33.0-36.5); MEAN CORPUSCULAR VOLUME 88.3 FL (78-98); MEAN PLATELET VOLUME 6.5 FL (7.4-10.4); MONOCYTES # (AUTO) 0.7 X10'3 (0-0.9); MONOCYTES % (AUTO) 7.4 % (2-12); NEUTROPHILS # (AUTO) 4.7 X10'3 (1.8-7.7); NEUTROPHILS % (AUTO) 47.5 % (42-75); PLATELET COUNT 382 X10'3 (140-440); RED BLOOD COUNT 4.48 X10'6 (4.20-5.60); RED CELL DISTRIBUTION WIDTH 14.6 % (11.5-14.5); WHITE BLOOD COUNT 9.9 X10'3 (4.5-11.0)
[2020-05-10 18:48] LABS: ALANINE AMINOTRANSFERASE 32 U/L (12-78); ALBUMIN 3.6 G/DL (3.4-5.0); ALBUMIN/GLOBULIN RATIO 0.8 (1.1-1.5); ALKALINE PHOSPHATASE 105 IU/L (46-116); ANION GAP 8 (8-16); ASPARTATE AMINO TRANSFERASE 15 U/L (10-37); BILIRUBIN,TOTAL 0.2 MG/DL (0.1-1.0); BLOOD UREA NITROGEN 25 MG/DL (7-18); BUN/CREATININE RATIO 41.7 (6.6-38.0); CHLORIDE 102 MMOL/L (99-107); POTASSIUM 3.6 MMOL/L (3.5-5.1); SODIUM 139 MMOL/L (135-145); TOTAL CARBON DIOXIDE 28.7 MMOL/L (24-32); TOTAL PROTEIN 8.3 G/DL (6.4-8.2); eGFR > 90 ML/MIN
[2020-05-10 18:52] LABS: GLUCOSE 77 MG/DL (70-104); VALPROATE 44.8 UG/ML (50-100)
[2020-05-10] MEDS: OLANZapine 5mg rapidly disint. tablet PO PRN (19:11)
[2020-05-10] MEDS: LORazepam 1 MG tablet PO PRN (19:11)
[2020-05-10] MEDS: diphenhydrAMINE 25mg capsule PO PRN (19:11)
[2020-05-10 20:22] VITALS: BP 122/78
[2020-05-10] MEDS: polyethylene glycol 3350 17gm powd pack PO SCH (20:22)
[2020-05-10] MEDS: clozapine 100mg tablet PO SCH (20:22)
[2020-05-10] MEDS: divalproex sod 250mg ER (24-hour) tablet PO SCH (20:22)
[2020-05-10] MEDS: traZODone 50mg tablet PO PRN (20:23)
[2020-05-10] MEDS: clozapine 25mg tablet PO SCH (20:23)
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
[2020-05-11] MEDS: mesalamine 1.2gm ER tablet PO SCH ×2 (07:37→20:18)
[2020-05-11] MEDS: nicotine 21mg patch - 24 hr TD SCH (07:38)
[2020-05-11] MEDS: calcium polycarbophil 625mg tablet PO SCH ×2 (07:38→20:17)
[2020-05-11] MEDS: docusate sod 250mg capsule PO SCH ×2 (07:38→20:19)
[2020-05-11 07:43] VITALS: BP 101/58
[2020-05-11] MEDS: lactose-reduced food (Ensure High Protein) 237ml bottle PO SCH ×3 (08:25→17:49)
--- NOTE | 2020-05-11 10:00 | NUR ---
Group Therapy: Process Group This Clinicians goals for this process group were as follows: (1) Ask scaling questions about Patients current anxiety, depression, and irritability symptoms as a check-in. (2) Share psychoeducation about self-efficacy, and ego strength. (3) Provide psychoeducation on [employer] Drama triangleVictim, Persecutor, Rescuer dynamic. (4) Share psychoeducation on developing positive ego strengthpositive affirmations, positive self-talk, transitioning from a victim of circumstances to a survivor of circumstances. (5) Process Clients thoughts and reflections on this topic within the group milieu. Patient identified experiencing the following levels of anxiety, depression, and anger/irritability while present in the group milieu (0-low; 10-High). Anxiety: 0/10 Depression: 0/10 Anger/irritability: 0/10 Patient presented as properly oriented x4 during the process group. Patient was dressed in nondescript, personal clothing that were appropriate within the milieu. Psychomotor activity was unremarkable. Patient's thought content was clear, and concrete. Patient's thought process was clear, coherent, and linear. This Clinician did not observe Patient responding to any internal stimuli during session. The rate, latency, and tone of Patients speech was within normal limits. Patient maintained intermittent eye contact with this Clinician. Patient presented in calm euthymic mood, with congruent affect during the process group. Patient presented as cooperative, verbally engaged and nonobtrusive within the group milieu. Patient reported that she was experiencing no symptoms of depression, anxiety, and/or anger/irritability during her initial check-in with this Clinician. This Clinician observed Patient filling out a worksheet that he provided patients in the process group that asked them to write down some of their strengths and qualities, in the context of being able to practice positive affirmations to build healthy ego strength. Patient handed her worksheet to this Clinician, but asked for him not to read her answers out loud, which this Clinician respected. Per this Clinician's impression, Patient was verbally engaged with her peers in the process group in a socially appropriate way. Jaron Negrete MA, FIRE TECHNICIAN Addendum: 05/11/20 at 1140 by Jaron DARLING Amended: Links added.
[2020-05-11] MEDS: diphenhydrAMINE 25mg capsule PO PRN (12:46)
[2020-05-11] MEDS: OLANZapine 5mg rapidly disint. tablet PO PRN (12:46)
[2020-05-11] MEDS: LORazepam 1 MG tablet PO PRN (13:40)
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
[2020-05-11] MEDS: magnesium hydroxide 30ml (MOM) UD suspension PO PRN (18:08)
[2020-05-11 19:00] VITALS: BP 104/72
[2020-05-11] MEDS: polyethylene glycol 3350 17gm powd pack PO SCH (20:18)
[2020-05-11] MEDS: clozapine 100mg tablet PO SCH (20:19)
[2020-05-11] MEDS: clozapine 25mg tablet PO SCH (20:19)
[2020-05-11] MEDS: divalproex sod 250mg ER (24-hour) tablet PO SCH (20:21)
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
[2020-05-12 07:51] VITALS: BP 99/63
[2020-05-12] MEDS: lactose-reduced food (Ensure High Protein) 237ml bottle PO SCH ×3 (08:00→17:43)
[2020-05-12] MEDS: docusate sod 250mg capsule PO SCH ×2 (08:01→20:55)
[2020-05-12] MEDS: calcium polycarbophil 625mg tablet PO SCH ×2 (08:01→20:55)
[2020-05-12] MEDS: mesalamine 1.2gm ER tablet PO SCH ×2 (08:02→20:55)
[2020-05-12] MEDS: nicotine 21mg patch - 24 hr TD SCH (08:02)
[2020-05-12] MEDS: OLANZapine 5mg rapidly disint. tablet PO PRN (10:25)
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
[2020-05-12] MEDS: acetaminophen 325mg tablet PO PRN (17:19)
[2020-05-12 20:00] VITALS: BP 116/67
[2020-05-12] MEDS: clozapine 100mg tablet PO SCH (20:55)
[2020-05-12] MEDS: clozapine 25mg tablet PO SCH (20:55)
[2020-05-12] MEDS: polyethylene glycol 3350 17gm powd pack PO SCH (20:55)
[2020-05-12] MEDS: divalproex sod 250mg ER (24-hour) tablet PO SCH (20:56)
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
[2020-05-13 08:00] VITALS: BP 101/69
[2020-05-13] MEDS: mesalamine 1.2gm ER tablet PO SCH ×2 (08:18→20:37)
[2020-05-13] MEDS: calcium polycarbophil 625mg tablet PO SCH ×2 (08:18→20:37)
[2020-05-13] MEDS: docusate sod 250mg capsule PO SCH ×2 (08:18→20:37)
[2020-05-13] MEDS: nicotine 21mg patch - 24 hr TD SCH (08:20)
[2020-05-13] MEDS: lactose-reduced food (Ensure High Protein) 237ml bottle PO SCH ×3 (08:21→14:17)
[2020-05-13] MEDS ORDERED: nicotine 7mg patch - 24hr TD ONE (09:40)
[2020-05-13] MEDS: nicotine 7mg patch - 24hr TD SCH (10:33)
[2020-05-13] MEDS: LORazepam 1 MG tablet PO PRN (14:23)
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
[2020-05-13 19:25] VITALS: BP 141/89
[2020-05-13] MEDS: divalproex sod 250mg ER (24-hour) tablet PO SCH (20:37)
[2020-05-13] MEDS: polyethylene glycol 3350 17gm powd pack PO SCH (20:37)
[2020-05-13] MEDS: traZODone 50mg tablet PO PRN (20:37)
[2020-05-13] MEDS: clozapine 100mg tablet PO SCH (20:37)
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
[2020-05-14 07:21] VITALS: BP 94/62
[2020-05-14] MEDS: calcium polycarbophil 625mg tablet PO SCH ×2 (07:46→20:59)
[2020-05-14] MEDS: lactose-reduced food (Ensure High Protein) 237ml bottle PO SCH ×4 (07:46→17:41)
[2020-05-14] MEDS: docusate sod 250mg capsule PO SCH ×2 (07:46→20:59)
[2020-05-14] MEDS: mesalamine 1.2gm ER tablet PO SCH ×2 (07:46→21:00)
[2020-05-14] MEDS: nicotine 21mg patch - 24 hr TD SCH (07:49)
[2020-05-14] MEDS: nicotine 7mg patch - 24hr TD SCH (07:50)
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
[2020-05-14] MEDS: LORazepam 1 MG tablet PO PRN (16:20)
--- NOTE | 2020-05-14 16:23 | NUR ---
Pt approached this RN to report that she thought she needed a PRN. Pt stated that she was feeling really angry inside and that there are people here who don't like her and she doesn't think she should be getting all riled up on the unit. Ativan 1 mg given at 1620.
[2020-05-14 19:45] VITALS: BP 118/70
[2020-05-14] MEDS: clozapine 100mg tablet PO SCH (20:59)
[2020-05-14] MEDS: polyethylene glycol 3350 17gm powd pack PO SCH (21:00)
[2020-05-14] MEDS: divalproex sod 250mg ER (24-hour) tablet PO SCH (21:00)
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
[2020-05-15 07:27] VITALS: BP 92/60
[2020-05-15] MEDS: calcium polycarbophil 625mg tablet PO SCH ×2 (07:55→20:45)
[2020-05-15] MEDS: mesalamine 1.2gm ER tablet PO SCH ×2 (07:55→20:45)
[2020-05-15] MEDS: docusate sod 250mg capsule PO SCH ×2 (07:55→20:46)
[2020-05-15] MEDS: nicotine 21mg patch - 24 hr TD SCH (07:59)
[2020-05-15] MEDS: nicotine 7mg patch - 24hr TD SCH (07:59)
[2020-05-15] MEDS: lactose-reduced food (Ensure High Protein) 237ml bottle PO SCH ×3 (08:10→17:55)
[2020-05-15] MEDS: LORazepam 1 MG tablet PO PRN (12:05)
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
[2020-05-15] MEDS: diphenhydrAMINE 25mg capsule PO PRN (17:55)
[2020-05-15] MEDS: OLANZapine 5mg rapidly disint. tablet PO PRN (17:55)
[2020-05-15 19:13] VITALS: BP 123/76
[2020-05-15] MEDS: polyethylene glycol 3350 17gm powd pack PO SCH (20:45)
[2020-05-15] MEDS: divalproex sod 250mg ER (24-hour) tablet PO SCH (20:46)
[2020-05-15] MEDS: clozapine 100mg tablet PO SCH (20:46)
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
[2020-05-16 07:46] VITALS: BP 95/58
[2020-05-16] MEDS: lactose-reduced food (Ensure High Protein) 237ml bottle PO SCH ×3 (08:00→18:00)
[2020-05-16] MEDS: docusate sod 250mg capsule PO SCH ×2 (08:36→20:19)
[2020-05-16] MEDS: mesalamine 1.2gm ER tablet PO SCH ×2 (08:36→20:19)
[2020-05-16] MEDS: calcium polycarbophil 625mg tablet PO SCH ×2 (08:36→20:19)
[2020-05-16] MEDS: nicotine 7mg patch - 24hr TD SCH ×2 (08:38→08:44)
[2020-05-16] MEDS: nicotine 21mg patch - 24 hr TD SCH ×2 (08:38→08:44)
--- NOTE | 2020-05-16 10:00 | NUR ---
Group Therapy: Process Group This Clinicians goals for this process group were as follows: (1) Ask scaling questions about Patients current anxiety, depression, and irritability symptoms as a check-in. (2) Share psychoeducation about the importance of being able to identify regular activities, support people, and thoughts (Anchors) that contribute to mental health well-being and stability. (3) Share psychoeducation about how the gradual removal of said activities, people and behaviors may lead to the erosion of mental well-being and stability. (4) Encourage patients to identify support anchors that they need to maintain in their lives that will promote their mental and emotional well-being. (5) Engage Patients in discussion of the topics shared within the group milieu. Patient identified experiencing the following levels of anxiety, depression, and anger/irritability while present in the group milieu (0-low; 10-High). Anxiety: 0/10 Depression: 0/10 Anger/irritability: 0/10 Patient presented as properly oriented x4 during the process group. Patient was initially dressed in green hospital scrubs within the group milieu and appeared as if she had just waken up. Later Patient returned in nondescript, personal clothing--a white shirt, and white, dotted pants. Patient left one time after this and put on a pink sweatshirt, noting that she was cold. Psychomotor activity was unremarkable. Patient's thought content was clear, and concrete. Patient's thought process was clear, coherent, and linear. This Clinician did not observe Patient responding to any internal stimuli during session. However, on one occasion this Clinician observed that Patient laughed when making eye contact with this Clinician. This Clinician asked Patient what she had found to be humorous, as this Clinician had made no attempts at humor. Patient stated, "I can see your face." As a standard safety precaution this Clinician wears a mask, hence this Clinician wondered how she could see his face if he had a mask on. She smiled and just insisted that she could. The rate, latency, and tone of Patients speech was within normal limits. Patient maintained regular eye contact with this Clinician. Patient presented in calm euthymic mood, with congruent affect during the process group. Patient presented as open and cooperative, and was verbally engaged and nonobtrusive within the group milieu. Patient was able to identify several coping skills and interventions that she believed were particularly helpful for her in her attempts to stay emotional/cognitively grounded in a place of baseline/optimal mental health. Jaron Negrete MA, [employer] Addendum: 05/16/20 at 1126 by Jaron Negrete SS Amended: Links added.
--- NOTE | 2020-05-16 12:35 | NUR ---
F/u (05/16): Pt PO 100% ONS and 75-100% fluctuating PO meals meeting needs. Last BM 05/16 receiving colace and miralax. No nutrition concerns at this time. Will continue to monitor. Recommendations: 1) Continue regular diet 2) [place] food preferences: No turkey or pork per diet order 3) Consider discontinuation of Ensure High Protein TID given adequate PO intake of meals meeting estimated nutrient needs 4) Routine bowel care 5) Scaled weights per rx Addendum: 05/16/20 at [address] Amended: Links added.
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
[2020-05-16] MEDS: LORazepam 1 MG tablet PO PRN (16:26)
[2020-05-16 20:07] VITALS: BP 127/89
[2020-05-16] MEDS: clozapine 100mg tablet PO SCH (20:19)
[2020-05-16] MEDS: divalproex sod 250mg ER (24-hour) tablet PO SCH (20:19)
[2020-05-16] MEDS: polyethylene glycol 3350 17gm powd pack PO SCH (20:19)
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
[2020-05-17 08:00] VITALS: BP 95/64
[2020-05-17] MEDS: docusate sod 250mg capsule PO SCH ×2 (08:33→20:00)
[2020-05-17] MEDS: mesalamine 1.2gm ER tablet PO SCH ×2 (08:34→20:58)
[2020-05-17] MEDS: calcium polycarbophil 625mg tablet PO SCH ×2 (08:34→20:58)
[2020-05-17] MEDS: lactose-reduced food (Ensure High Protein) 237ml bottle PO SCH ×3 (08:38→18:10)
[2020-05-17] MEDS ORDERED: nicotine 21mg patch - 24 hr TD ONE (09:35)
[2020-05-17] MEDS: acetaminophen 325mg tablet PO PRN (13:06)
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
[2020-05-17] MEDS: LORazepam 1 MG tablet PO PRN (17:27)
[2020-05-17] MEDS: diphenhydrAMINE 25mg capsule PO PRN (17:27)
[2020-05-17] MEDS: OLANZapine 5mg rapidly disint. tablet PO PRN (17:27)
[2020-05-17 20:34] VITALS: BP 128/86
[2020-05-17] MEDS: divalproex sod 250mg ER (24-hour) tablet PO SCH (20:57)
[2020-05-17] MEDS: polyethylene glycol 3350 17gm powd pack PO SCH (20:58)
[2020-05-17] MEDS: clozapine 100mg tablet PO SCH (20:58)
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
[2020-05-18 08:00] VITALS: BP 108/69
[2020-05-18 08:04] LABS: BASOPHILS % (AUTO) 0.4 % (0-1); EOSINOPHILS # (AUTO) 0.1 X10'3 (0-0.9); EOSINOPHILS % (AUTO) 0.7 % (0-6); HEMATOCRIT 39.4 % (35.0-45.0); HEMOGLOBIN 13.1 g/dl (12.0-16.0); LYMPHOCYTES # (AUTO) 3.9 X10'3 (1.1-4.8); LYMPHOCYTES % (AUTO) 54.5 % (21-51); MEAN CORPUSCULAR HEMOGLOBIN 29.6 PG (27.0-31.0); MEAN CORPUSCULAR HGB CONC 33.4 g/dL (33.0-36.5); MEAN CORPUSCULAR VOLUME 88.6 FL (78-98); MEAN PLATELET VOLUME 6.6 FL (7.4-10.4); MONOCYTES # (AUTO) 0.6 X10'3 (0-0.9); NEUTROPHILS # (AUTO) 2.6 X10'3 (1.8-7.7); NEUTROPHILS % (AUTO) 36.4 % (42-75); PLATELET COUNT 334 X10'3 (140-440); RED BLOOD COUNT 4.44 X10'6 (4.20-5.60); RED CELL DISTRIBUTION WIDTH 14.8 % (11.5-14.5); WHITE BLOOD COUNT 7.2 X10'3 (4.5-11.0)
[2020-05-18] MEDS: lactose-reduced food (Ensure High Protein) 237ml bottle PO SCH ×3 (08:12→18:05)
[2020-05-18] MEDS: docusate sod 250mg capsule PO SCH ×2 (08:12→20:56)
[2020-05-18] MEDS: calcium polycarbophil 625mg tablet PO SCH ×2 (08:12→20:56)
[2020-05-18] MEDS: mesalamine 1.2gm ER tablet PO SCH ×2 (08:12→20:55)
[2020-05-18] MEDS: nicotine 21mg patch - 24 hr TD SCH (08:15)
--- NOTE | 2020-05-18 10:00 | NUR ---
Group Therapy: Process Group This Clinicians goals for this process group were as follows: (1) Ask scaling questions about patients current anxiety, depression, and irritability symptoms as a check-in. (2) Share psychoeducation about emotional relaxation techniques with patients, including information on: mindfulness, meditation controlled breathing, progressive muscle relaxation, guided visualization. (3) Model and practice controlled breathing, progressive muscle relaxation, and guided visualization with patients within the group milieu. (4) Process patients comments and reflections on the before-mentioned activities after they have participated in them. Patient identified experiencing the following levels of anxiety, depression, and anger/irritability while present in the group milieu (0-low; 10-High). Anxiety: 0/10 Depression: 0/10 Anger/irritability: 0/10 Patient presented as properly oriented x4 during the process group. Patient was dressed in nondescript, personal clothing that were appropriate within the milieu. Patient wore a pinkish/red sweatshirt, and white paints with dots and patterns on them. Psychomotor activity was unremarkable. Patient sat on the southeast side of the group room against the wall--positioned a good distance away from the rest of her peers during the process group. Patient's thought content was clear, and concrete. Patient's thought process was clear, coherent, and linear. This Clinician did not observe Patient responding to any internal stimuli during session. However, on one occasion this Clinician did hear Patient laughing spontaneously at an inopportune time while seated in the group room, which may suggest that she was responding to internal stimuli. The rate, latency, and tone of Patients speech was within normal limits. Patient seldom made eye contact with this Clinician. Patient presented in calm euthymic mood, with congruent affect during the process group. Patient presented as cooperative, verbally subdued, and nonobtrusive within the group milieu. Patient chose not to participate in the grounding activity of coloring [employer] during the process group. Patient made comments when asked specific questions by this Clinician. More specifically, this Clinician asked Patient if she could identify a "Safe place," that she could enrich by populating it with her five senses. Patient answered that her personal bed was one such safe place memory for her. Patient radha her hand once to ask when group was going to be, "Over" approximately 15 minutes before the end of the process group. Approximately ten minutes before the end of the process group, Patient announced that she was going to use the rest room and would be back, though, she did not return to the group milieu after this. Jaron Negrete MA, FIN[employer]SEMBLER [employer] Addendum: 05/18/20 at 1152 by Jaron Negrete SS Amended: Links added.
--- NOTE | 2020-05-18 14:25 | NUR ---
PLACEMENT Nury has been accepted at [facility]. TAD office requested updated notes to send to Loraine Matthews. TOM Rene
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
--- NOTE | 2020-05-18 14:49 | NUR ---
NURSING PROGRESS NOTE: Legal hold: LPS Client on involuntary status for GD Report received from RN Brandy with use of SBAR Why are they here: Pt is conserved and was in a facility in [place] and went AWOL. She got on a bus and it was reported she was ripping masks off of people on the bus and threatened the business consult. Pt has a Hx for schizophrenia and bipolar disorder. She has a past suicide attempt where she stabbed herself in the chest. Pt states she "wants to but wants to live." "I just feel tortured and I didn't do anything to deserve that." PT is disorganized at times and talks about family members and past situations. Assessment What has happened this shift: Pt denies depression, SI/HI/AH/VH. After breakfast pt approached this RN to ask for coffee. Asked pt if she had already had coffee before breakfast. Pt answered no and that there should be a note saying that she can have coffee when she has to go to the bathroom. This RN was not aware of any such note. Encouraged pt to wait until morning snack for coffee. Pt only slept 5.5 hours per noc shift report, discussed this with pt. Pt stated that it's not her fault if her roommate keeps her up at night. Pt approached this RN again during group to say that she wanted to attend group but she was just so tired and needed coffee and that if she couldn't have coffee she should not be penalized if she's too tired to attend group. Educated pt that the coffee is decaffeinated. Pt replied that it still had like 1% caffeine in it. Determined with storage solutions architect that pt had not drank any coffee this morning before breakfast. Provided pt with a cup of coffee. After lunch, pt again requesting coffee this time so she could be awake enough for afternoon group. Pt said she knew it was decaffeinated but it still had 5% caffeine in it. Reality orientation provided that it was probably more like .05%, a cup of black coffee provided so pt could attend group. Pt attended afternoon group. Pt requested tampons,states she is on her period. Pt has been flirting with a male peer who was admitted today who she knows from other facilities and who she has apparently AWOL'd with in the past. Pt requested lotion and perfume. S/I, H/I: Pt denies A/VH: Pt denies ADL's: Independent Group attendance: Yes Were Meds taken: Yes Any med S/E: Pt reported feeling fatigued. Mental Status Exam Appearance: Clean, well groomed young woman with dark josefina length hair wearing street clothes. Eye contact: Good Behavior: Mostly pleasant and cooperative, socializes/flirts with peers, makes frequent requests for coffee. Speech: Clear, regular rate/rhythm, audible Mood: Elevated Affect: Bright Thought process: Perseverative Thought Content: Perseverating on coffee today, happy to see a male patient newly admitted here today who she knows from previous facilities. Cognition: A/O X 4 Insight: Fair Judgment: Fair Interventions PRN's used: None Therapeutic interventions: 1:1 assessment, provided therapeutic communication w/active listening, medication administration/education/monitoring, behavior monitoring and intervention as needed; limit setting, redirection, positive reinforcement, Q 15 minute safety checks. Restraints/seclusion/emergency medication: N/A Justification of Continued Inpatient Treatment: Pt continues to stabilize on current medication regimen. She requires PRN's for mood stability due to impulsivity, hx of edmund and anxiety and will ask staff for them when needed. Pt continues to require a safe and supportive environment while awaiting placement.
[2020-05-18] MEDS: OLANZapine 5mg rapidly disint. tablet PO PRN (16:46)
[2020-05-18] MEDS: diphenhydrAMINE 25mg capsule PO PRN (16:46)
[2020-05-18 19:48] VITALS: BP 124/101
[2020-05-18] MEDS: clozapine 100mg tablet PO SCH (20:55)
[2020-05-18] MEDS: divalproex sod 250mg ER (24-hour) tablet PO SCH (20:57)
[2020-05-18] MEDS: polyethylene glycol 3350 17gm powd pack PO SCH ×2 (20:57→21:00)
--- NOTE | 2020-05-19 02:00 | NUR ---
NURSING PROGRESS NOTE: Legal hold: LPS Client on involuntary status for GD Report received from Dinesh YOU with use of SBAR Why are they here: Pt is conserved and was in a facility in [place] and went AWOL. She got on a bus and it was reported she was ripping masks off of people on the bus and threatened the business division chair. Pt has a Hx for schizophrenia and bipolar disorder. She has a past suicide attempt where she stabbed herself in the chest. Pt states she "wants to but wants to live." "I just feel tortured and I didn't do anything to deserve that." PT is disorganized at times and talks about family members and past situations. Assessment What has happened this shift: Pt is agitated at shift change and verbally targeting a peer for staring at her and following her. Manager Express is able to deescalate pt by walking with her and advising her to stay away from the pt she feels is staring at her. She then becomes animated and fixates on a male peer, following him in the hallway talking loudly and flirting with him. Staff reports her talking loudly about babies. She tries standing outside of his room, and staff redirects her to the rec room (a communal area) and not other patients rooms. She verbalizes understanding. She is cooperative with 1:1 assessment and medication compliant. She needs to be reminded to not go near the male peers room and to give him space. Before bed she listens to headphones and paces the halls with a blanket wrapped around her. After paces for awhile she was able to lay down and fall asleep. S/I, H/I: Denies A/VH: Denies ADL's: Independent Group attendance: N/A Were Meds taken: Yes; refused miralax Any med S/E: None observed nor reported Mental Status Exam Appearance: Showered, well groomed Eye contact: Good Behavior: labile, argumentative to overly kind Speech: Clear, regular rate/rhythm, audible Mood: labile Affect: Congruent to mood Thought process: Linear Thought Content: fixated on other pts Cognition: A&Ox4 Insight: Fair Judgment: Fair Interventions PRN's used: None Therapeutic interventions: 1:1 assessment, provided therapeutic communication w/active listening, medication administration/education/monitoring, behavior monitoring and intervention as needed; offering of PRN medications, Q 15 minute safety checks. Restraints/seclusion/emergency medication: N/A Justification of Continued Inpatient Treatment: Pt continues to stabilize on current medication regimen. She requires PRN's for mood stability due to impulsivity, hx of edmund and anxiety and will ask staff for them when needed. Pt continues to require a safe and supportive environment while awaiting placement.
[2020-05-19 08:00] VITALS: BP 83/54
[2020-05-19] MEDS: lactose-reduced food (Ensure High Protein) 237ml bottle PO SCH ×3 (08:00→18:00)
[2020-05-19] MEDS: mesalamine 1.2gm ER tablet PO SCH ×2 (08:44→21:38)
[2020-05-19] MEDS: docusate sod 250mg capsule PO SCH ×2 (08:44→21:40)
[2020-05-19] MEDS: calcium polycarbophil 625mg tablet PO SCH ×2 (08:44→21:36)
[2020-05-19] MEDS: nicotine 21mg patch - 24 hr TD SCH (08:45)
--- NOTE | 2020-05-19 10:00 | NUR ---
Group Therapy: Process Group This Clinicians goal for this process group were as follows: (1) Introduce and provide psychoeducation on Gimenez ABC method. (2) Practice working through Gimenez ABC method using examples provided by this Clinician. (3) Encourage Patients to process some of their own reoccurring situations utilizing Gimenez ABC methodology. (4) Process Clients thoughts and reflections on this topic within the group milieu. Patient presented as properly oriented x4 during the process group. Patient was dressed in nondescript, personal clothing that were appropriate within the milieu. She wore a white shirt with white pants, with blue dots on them. Psychomotor activity was unremarkable. Patient entered the process group approximately 35 minutes after the start of the process group. She did not provide answers to scaling questions about her anxiety, depression, and anger/irritability symptoms, nor did she participate in the discussion of Pernell' ABC CBT methology. This Clinician did not observe Patient responding to any internal stimuli during session. Patient maintained regular eye contact with this Clinician for the brief time she was in the process group. Patient presented in calm euthymic mood, with congruent affect during the process group. Patient presented as verbally subdued and nonobtrusive within the group milieu. She quietly left the process group without speaking approximately 5 minutes after entering the milieu, and did not return. Jaron Negrete MA, TOM Addendum: 05/19/20 at 1153 by Jaron Negrete SS Amended: Links added.
[2020-05-19] MEDS: diphenhydrAMINE 25mg capsule PO PRN (12:26)
[2020-05-19] MEDS: LORazepam 1 MG tablet PO PRN (13:42)
--- NOTE | 2020-05-19 16:31 | NUR ---
NURSING PROGRESS NOTE Legal hold: LPS Client on involuntary status for GD Report received from JACK Moore with use of SBAR Why they are here: Pt is conserved and was in a facility in [place] and went AWOL. She got on a bus and it was reported she was ripping masks off of people on the bus and threatened the business integration analyst. Pt has history of schizophrenia and bipolar disorder. She has a past suicide attempt where she stabbed herself in the chest. Pt states she "wants to but wants to live." "I just feel tortured and I didn't do anything to deserve that." PT is disorganized at times and talks about family members and past situations. Assessment What has happened this shift: Pt slept in later than usual this morning. Pt received morning medications prior to breakfast. During breakfast she did not receive her protein drink becoming noticeably upset. The noticeable change in her demeanor was seen through the increase and pressured tone of her speech. Pt was able to take time alone in her room with redirection. She later asked for a PRN Benadryl and was given Benadryl 25mg PO. Again, over food, pt became upset when she was given raw meat for lunch this was again noticeable due to a change of her behavior. She became loud, people do these things to me on purpose. Pt offered PRN Zydis and Ativan. She agreed to the Ativan and it was administered per her request. S/I, H/I: Pt denies A/VH: Pt denies ADL's: Independent Group attendance: Yes Were Meds taken: Yes Any med S/E: None noted or reported Mental Status Exam Appearance: Pt wearing the clothes she slept in Eye contact: Good Behavior: Mcdonough but mostly calm and cooperative; isolates keeping to herself today. Speech: Clear, regular rate/rhythm, audible Mood: Unable to deal with a disappointment surrounding food Affect: Bright Thought process: Talking about her and getting money for a pt currently residing here. Thought Content: Perseverating on food today Cognition: A/O X 4 Insight: Poor Judgment: Fair Interventions PRN's used: Benadryl and Ativan Therapeutic interventions: 1:1 assessment, provided therapeutic communication w/active listening, medication administration/education/monitoring, behavior monitoring and intervention as needed; limit setting, redirection, Q 15 minute safety checks. Restraints/seclusion/emergency medication: N/A Justification of Continued Inpatient Treatment: Pt continues to stabilize on current medication regimen. She requires PRN's for mood stability due to impulsivity, hx of edmund and anxiety and will ask staff for them when needed. Pt continues to require a safe and supportive environment while awaiting placement.
[2020-05-19 19:57] VITALS: BP 111/67
[2020-05-19] MEDS: clozapine 100mg tablet PO SCH (21:38)
[2020-05-19] MEDS: divalproex sod 250mg ER (24-hour) tablet PO SCH (21:39)
[2020-05-19] MEDS: polyethylene glycol 3350 17gm powd pack PO SCH (21:44)
--- NOTE | 2020-05-20 00:55 | NUR ---
NURSING PROGRESS NOTE: Legal hold: LPS Client on involuntary status for GD Report received from Dinesh YOU with use of SBAR Why are they here: Pt is conserved and was in a facility in [place] and went AWOL. She got on a bus and it was reported she was ripping masks off of people on the bus and threatened the business services specialist sales. Pt has a Hx for schizophrenia and bipolar disorder. She has a past suicide attempt where she stabbed herself in the chest. Pt states she "wants to but wants to live." "I just feel tortured and I didn't do anything to deserve that." PT is disorganized at times and talks about family members and past situations. Assessment What has happened this shift: Pt is in an elevated mood at shift change, laughing loudly and smiling with peers. Pt is observed following a male peer around and talking with him. She showers this shift and apple her hair. She reports feeling good because she feels rested and was able to sleep a lot of the day. She is cooperative with 1:1 assessment and medication compliant. She is kind to staff and is observed being helpful with peers. She denies SI/HI/AH/VH at this time. S/I, H/I: Denies A/VH: Denies ADL's: Independent Group attendance: N/A Were Meds taken: Yes Any med S/E: None observed nor reported Mental Status Exam Appearance: Showered, well groomed Eye contact: Good Behavior: cooperative, social Speech: Clear, regular rate/rhythm, audible Mood: elevated Affect: Congruent to mood Thought process: Linear Thought Content: male on the unit Cognition: A&Ox4 Insight: Fair Judgment: Fair Interventions PRN's used: None Therapeutic interventions: 1:1 assessment, provided therapeutic communication w/active listening, medication administration/education/monitoring, behavior monitoring and intervention as needed; offering of PRN medications, Q 15 minute safety checks. Restraints/seclusion/emergency medication: N/A Justification of Continued Inpatient Treatment: Pt continues to stabilize on current medication regimen.
[2020-05-20 08:00] VITALS: BP 105/63
[2020-05-20] MEDS: mesalamine 1.2gm ER tablet PO SCH ×2 (08:58→20:36)
[2020-05-20] MEDS: calcium polycarbophil 625mg tablet PO SCH ×2 (08:58→20:34)
[2020-05-20] MEDS: docusate sod 250mg capsule PO SCH ×2 (08:58→20:36)
[2020-05-20] MEDS: nicotine 21mg patch - 24 hr TD SCH (08:59)
[2020-05-20] MEDS: lactose-reduced food (Ensure High Protein) 237ml bottle PO SCH ×3 (08:59→18:00)
[2020-05-20] MEDS: LORazepam 1 MG tablet PO PRN (15:18)
--- NOTE | 2020-05-20 16:17 | NUR ---
NURSING PROGRESS NOTE Legal hold: LPS Client on involuntary status for GD Report received from JACK Moore with use of SBAR Why they are here: Pt is conserved and was in a facility in [place] and went AWOL. She got on a bus and it was reported she was ripping masks off of people on the bus and threatened the busher helper. Pt has history of schizophrenia and bipolar disorder. She has a past suicide attempt where she stabbed herself in the chest. Pt states she "wants to but wants to live." "I just feel tortured and I didn't do anything to deserve that." PT is disorganized at times and talks about family members and past situations. Assessment What has happened this shift: Pt slept most of this shift up for meals and late medication pass. Pt later in the afternoon started perseverating on getting rid of all her belongings and "closing up this admit and just being here." Pt's clothes taken from her bag and was put in a white bag in a locker with her name on it. S/I, H/I: Pt denies A/VH: Pt denies ADL's: Independent Group attendance: Yes Were Meds taken: Yes Any med S/E: None noted or reported Mental Status Exam Appearance: Pt wearing the clothes she slept in Eye contact: Good Behavior: Mcdonough but mostly calm and cooperative; isolates keeping to herself today. Speech: Clear, regular rate/rhythm, audible Mood: Anxious Affect: Labile at times Thought process: Going to placement at a new [facility] Thought Content: Perseverating on getting rid of all her belongings today Cognition: A/O X 4 Insight: Poor Judgment: Fair Interventions PRN's used: Ativan Therapeutic interventions: 1:1 assessment, provided therapeutic communication w/active listening, medication administration/education/monitoring, behavior monitoring and intervention as needed; limit setting, redirection, Q 15 minute safety checks. Restraints/seclusion/emergency medication: N/A Justification of Continued Inpatient Treatment: Pt continues to stabilize on current medication regimen. She requires PRN's for mood stability due to impulsivity, hx of edmund and anxiety and will ask staff for them when needed. Pt continues to require a safe and supportive environment while awaiting placement.
[2020-05-20 19:00] VITALS: BP 103/66
[2020-05-20] MEDS: divalproex sod 250mg ER (24-hour) tablet PO SCH (20:32)
[2020-05-20] MEDS: clozapine 100mg tablet PO SCH (20:35)
[2020-05-20] MEDS: polyethylene glycol 3350 17gm powd pack PO SCH (20:43)
--- NOTE | 2020-05-21 01:34 | NUR ---
NURSING PROGRESS NOTE: Legal hold: LPS Client on involuntary status for GD Report received from Dinesh YOU with use of SBAR Why are they here: Pt is conserved and was in a facility in [place] and went AWOL. She got on a bus and it was reported she was ripping masks off of people on the bus and threatened the school bus aide. Pt has a Hx for schizophrenia and bipolar disorder. She has a past suicide attempt where she stabbed herself in the chest. Pt states she "wants to but wants to live." "I just feel tortured and I didn't do anything to deserve that." PT is disorganized at times and talks about family members and past situations. Assessment What has happened this shift: Pt is social in the hallways at beginning of shift. She talks to staff and a male patient, laughing and smiling. She is observed inviting a male patient to touch her hair, publications writer interjects and reminds her she cannot be touching other patients or inviting them to touch her. She verbalizes understanding. Pt needs to be reminded to keep her distance physically from said male patient. She talks loudly and draws attention to herself when male pt is not engaged with her. She is cooperative with 1:1 assessment and medication compliant. She denies SI/HI/AH/VH at this time. S/I, H/I: Denies A/VH: Denies ADL's: Independent Group attendance: N/A Were Meds taken: Yes Any med S/E: None observed nor reported Mental Status Exam Appearance: well groomed Eye contact: Good Behavior: cooperative, social Speech: Clear, regular rate/rhythm, audible Mood: elevated Affect: Congruent to mood Thought process: Linear Thought Content: male on the unit Cognition: A&Ox4 Insight: Fair Judgment: Fair Interventions PRN's used: None Therapeutic interventions: 1:1 assessment, provided therapeutic communication w/active listening, medication administration/education/monitoring, behavior monitoring and intervention as needed; offering of PRN medications, Q 15 minute safety checks. Restraints/seclusion/emergency medication: N/A Justification of Continued Inpatient Treatment: Pt continues to stabilize on current medication regimen.
[2020-05-21 08:00] VITALS: BP 98/65
[2020-05-21] MEDS: nicotine 21mg patch - 24 hr TD SCH (08:43)
[2020-05-21] MEDS: calcium polycarbophil 625mg tablet PO SCH ×2 (08:43→20:23)
[2020-05-21] MEDS: mesalamine 1.2gm ER tablet PO SCH ×2 (08:43→20:22)
[2020-05-21] MEDS: docusate sod 250mg capsule PO SCH ×2 (08:43→20:24)
[2020-05-21] MEDS: lactose-reduced food (Ensure High Protein) 237ml bottle PO SCH ×3 (08:44→17:48)
--- NOTE | 2020-05-21 16:26 | NUR ---
NURSING PROGRESS NOTE Legal hold: LPS Client on involuntary status for GD Report received from JACK Moore with use of SBAR Why they are here: Pt is conserved and was in a facility in [place] and went AWOL. She got on a bus and it was reported she was ripping masks off of people on the bus and threatened the business continuity specialist. Pt has history of schizophrenia and bipolar disorder. She has a past suicide attempt where she stabbed herself in the chest. Pt states she "wants to but wants to live." "I just feel tortured and I didn't do anything to deserve that." PT is disorganized at times and talks about family members and past situations. Assessment What has happened this shift: Pt up more this shift although she slept most of the morning. She showered and did her laundry. She shared her desires to leave here and how tired she is of being here. She spent the day taking care of her self, listening to music, making phone calls and watching TV. S/I, H/I: Pt denies A/VH: Pt denies ADL's: Independent Group attendance: Yes Were Meds taken: Yes Any med S/E: None noted or reported Mental Status Exam Appearance: In greed scrubs; clothes in the laundry Eye contact: Good Behavior: Pleasant; kind to peers; laughing inappropriately Speech: Clear, regular rate/rhythm, audible Mood: Paces; anxious Affect: Labile at times Thought process: "Life is funny to me sometimes." Thought Content: Hanging out with another patient here Cognition: A/O X 4 Insight: Poor Judgment: Fair Interventions PRN's used: Ativan Therapeutic interventions: 1:1 assessment, provided therapeutic communication w/active listening, medication administration/education/monitoring, behavior monitoring and intervention as needed; limit setting, redirection, Q 15 minute safety checks. Restraints/seclusion/emergency medication: N/A Justification of Continued Inpatient Treatment: Pt continues to stabilize on current medication regimen. She requires PRN's for mood stability due to impulsivity, hx of edmund and anxiety and will ask staff for them when needed. Pt continues to require a safe and supportive environment while awaiting placement.
[2020-05-21] MEDS: divalproex sod 125mg sprinkle cap PO SCH (17:48)
[2020-05-21 19:00] VITALS: BP 141/69
[2020-05-21] MEDS: clozapine 100mg tablet PO SCH (20:24)
[2020-05-21] MEDS: polyethylene glycol 3350 17gm powd pack PO SCH (21:00)
[2020-05-21] MEDS: LORazepam 1 MG tablet PO PRN (21:10)
--- NOTE | 2020-05-22 00:26 | NUR ---
NURSING PROGRESS NOTE Legal hold: LPS Report received from AVELINO Montiel with use of SBAR. Why are they here: Patient decompensated at board and care; increasingly agitated with bizarre, paranoid and delusional statements. Access center assessed and brought to ED for evaluation and stabilization. Assessment What happened this shift: Patient was in the [place]ehan hanging out with a male peer. Pt needed redirection multiple times encouraging maale peer to touch her and hug her. Pt then went to rec room where she got in an argument with peers trying to watch tv. Redirected again. Pt became very tearful after a phone call and said that her peers and staff were talking about her. Prn Ativan given with little help .Pt eventually went to bed. S/I, H/I: Denies both. A/VH: Denies both. Sleep: 7.75 hrs per Sleep Assessment. No naps today. ADL's: Independent Group attendance: No group today. Were Meds taken: Yes, without hesitation. Any med S/E: Not observed nor reported Mental Status Exam Appearance: Neat, wearing his dress jacket and ball cap. Eye contact: Good Behavior: Pleasant, slightly delusional (baseline), cooperative; socializes appropriately with staff and peers. Speech: Clear, audible, normal rate/rhythm. Mood: Euthymic Affect: Blunted Thought process: Circumstantial Thought Content: "stealing social security checks." Cognition: A&Ox4 Insight: Fair Judgment: Fair Interventions PRN's used: Ativan Therapeutic interventions: provided 1:1 assessment, therapeutic communication and active listening, pain management for right shoulder, medication administration/education/monitoring, encouragement to attend groups, behavior monitoring and intervention as needed, limit setting, Q 15 minute safety checks. Restraints/seclusion/emergency medication: N/A Justification of Continued Inpatient Treatment: Patient is LPS conserved and requires a safe and therapeutic environment. Patient was accepted to [facility], awaiting discharge date/time.
[2020-05-22] MEDS: nicotine 21mg patch - 24 hr TD SCH (07:55)
[2020-05-22] MEDS: divalproex sod 125mg sprinkle cap PO SCH ×3 (07:55→17:47)
[2020-05-22] MEDS: calcium polycarbophil 625mg tablet PO SCH ×2 (07:55→20:15)
[2020-05-22] MEDS: docusate sod 250mg capsule PO SCH ×2 (07:55→20:15)
[2020-05-22] MEDS: mesalamine 1.2gm ER tablet PO SCH ×2 (07:55→20:14)
[2020-05-22 08:00] VITALS: BP 86/61
[2020-05-22] MEDS: lactose-reduced food (Ensure High Protein) 237ml bottle PO SCH ×3 (08:00→17:58)
--- NOTE | 2020-05-22 10:00 | NUR ---
Group Therapy: Process Group This Clinicians goal for this process group were as follows: (1) Ask scaling questions about patients current anxiety, depression, and irritability symptoms as a check-in (2) Introduce and provide psychoeducation on distress tolerance skills. (2) Introduce the concept of radical acceptance and using our senses to self-soothe. (3) Share the acronym, ArtemioTNelsonE Activities; Contributing; Comparisons; Emotions; Pushing Away; Thoughts; and Sensations (4) Process Clients thoughts and reflections on this topic within the group milieu. This Clinician facilitated group. Milieu staff was present to monitor behaviors within the process group. Patient identified experiencing the following levels of anxiety, depression, and anger/irritability while present in the group milieu (0-low; 10-High). Anxiety: 10 Depression: 10 Anger/irritability: 09/03 Patient presented as properly oriented x4 during the process group. Patient was dressed in [facility] scrubs within the milieu. Psychomotor activity was unremarkable. On one occasion Patient asked this Clinician if she could dismissed temporarily from the group. She returned about 5 minutes later with a leo mug of water. Patient's thought content was clear, and concrete. Patient's thought process was clear, coherent, and linear. This Clinician did not observe Patient responding to any internal stimuli during session. The rate, latency, and tone of Patients speech was within normal limits. Patient maintained intermittent eye contact with this Clinician. Patient presented in calm euthymic mood, with congruent affect during the process group. Patient presented as cooperative, verbally engaged and nonobtrusive within the group milieu. Patient answered scaling questions regarding her anxiety, depression, and anger/irritability symptoms, noting that her depression was high--10/10. This Clinician asked Patient her impression as to why her depression was so high. Patient reported that she had had bad dreams and that she had slept with her nicotine patch, which she then proceeded to take off during the process group. Patient reported that she enjoyed walking as exercise, which she did from time to time to relax during stressful situations, which this Clinician praised as a good activity to engage in to self-soothe on occasion. Jaron Negrete MA, MOSS BLEACHER Addendum: 05/22/20 at 1144 by Jaron DARLING Amended: Links added.
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
[2020-05-22] MEDS: LORazepam 1 MG tablet PO PRN ×2 (15:36→21:27)
[2020-05-22] MEDS: clozapine 100mg tablet PO SCH (20:14)
[2020-05-22] MEDS: polyethylene glycol 3350 17gm powd pack PO SCH (20:15)
[2020-05-22 20:43] VITALS: BP 109/76
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
[2020-05-23 07:00] VITALS: BP 101/72
[2020-05-23] MEDS: mesalamine 1.2gm ER tablet PO SCH ×2 (08:35→20:21)
[2020-05-23] MEDS: divalproex sod 125mg sprinkle cap PO SCH ×3 (08:35→17:30)
[2020-05-23] MEDS: calcium polycarbophil 625mg tablet PO SCH ×2 (08:35→20:21)
[2020-05-23] MEDS: docusate sod 250mg capsule PO SCH ×2 (08:35→20:21)
[2020-05-23] MEDS: nicotine 21mg patch - 24 hr TD SCH (08:36)
[2020-05-23] MEDS: lactose-reduced food (Ensure High Protein) 237ml bottle PO SCH ×3 (08:38→18:05)
--- NOTE | 2020-05-23 09:10 | NUR ---
[facility] downtime [phone]
--- NOTE | 2020-05-23 10:00 | NUR ---
Group Therapy: Process Group This Clinicians goal for this process group were as follows: (1) Ask scaling questions about Patients current anxiety, depression, and irritability symptoms as a check-in. (2) Provide psychoeducation on differences between passive, passive-aggressive, assertive, and aggressive forms of communication. (3) Provide psychoeducation on fair fighting rules to illustrate principles of assertive communication. (4) Process Patients thoughts and reflections on this topic within the group milieu. Patient presented as properly oriented to person, place, and situation during the process group. Patient was dressed in a blue sweatshirt and white pants with dots patterned on them that were appropriate within the milieu. Psychomotor activity was unremarkable. She carried a leo mug of water with her when she arrived within the milieu approximately 30 minutes after the start of the process group. This Clinician welcomed Patient to the process group. Patient stated, "I'm tired." After only about 1 minute she stood up and left the process group without participating in the discussion of assertive, passive, and aggressive forms of communication or fair fighting rules for reducing verbal conflict. Patient's thought content was clear, and concrete. Patient's thought process was clear, coherent, and linear. This Clinician did not observe Patient responding to any internal stimuli during session. The rate, latency, and tone of Patients speech was within normal limits. Patient maintained intermittent eye contact with this Clinician. Patient presented in calm euthymic mood, with bunted affect during the process group. Patient presented as verbally subdued and nonobtrusive within the group room before leaving after a brief amount of time within the milieu. Jaron Negrete MA, AIRPLANE FUELER Addendum: 05/23/20 at 1150 by Jaron Negrete SS Amended: Links added.
--- NOTE | 2020-05-23 12:21 | NUR ---
F/u 05/23: Pt PO 100% ONS and 75-100% PO meals meeting needs. Last BM 05/21 receiving colace and miralax. No nutrition concerns at this time. Will continue to monitor. Recommendations: 1) Continue regular diet 2) [place] food preferences: No turkey or pork per diet order 3) Consider discontinuation of Ensure High Protein TID given adequate PO intake of meals meeting estimated nutrient needs 4) Routine bowel care 5) Scaled weights per rx Addendum: 05/23/20 at [address] Amended: Links added.
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
[2020-05-23] MEDS: polyethylene glycol 3350 17gm powd pack PO SCH (20:20)
[2020-05-23] MEDS: traZODone 50mg tablet PO PRN (20:21)
[2020-05-23] MEDS: clozapine 100mg tablet PO SCH (20:21)
[2020-05-23 20:39] VITALS: BP 111/82
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
[2020-05-24 08:00] VITALS: BP 103/61
[2020-05-24] MEDS: lactose-reduced food (Ensure High Protein) 237ml bottle PO SCH ×2 (08:00→13:38)
[2020-05-24] MEDS: calcium polycarbophil 625mg tablet PO SCH ×2 (08:59→20:01)
[2020-05-24] MEDS: docusate sod 250mg capsule PO SCH ×2 (08:59→20:00)
[2020-05-24] MEDS: nicotine 21mg patch - 24 hr TD SCH ×2 (08:59→09:03)
[2020-05-24] MEDS: mesalamine 1.2gm ER tablet PO SCH ×2 (09:10→20:00)
--- NOTE | 2020-05-24 10:00 | NUR ---
Group Therapy: Process Group This Clinicians goal for this process group were as follows: (1) Ask scaling questions about patients current anxiety, depression, and irritability symptoms as a check-in. (2) Provide psychoeducation on grounding activities as a means to reduce the acuity of unwanted mental health symptoms. (3) Introduce mandalas as one such activity for group participation within the milieu. (4) Check-in with patients during the coloring activity to reinforce the importance of engaging in adaptive grounding activities. Patient identified experiencing the following levels of anxiety, depression, and anger/irritability while present in the group milieu (0-low; 10-High). Anxiety: 01/01 Depression: 01/01 Anger/irritability: 09/03 Patient presented as properly oriented x4 during the process group. Patient was dressed in nondescript, personal clothing that were appropriate within the milieu. She wore a blue sweat shirt, and blue pants with heart patterns on them. Psychomotor activity was unremarkable. Patient's thought content was clear, and concrete. Patient's thought process was clear, coherent, and linear. This Clinician suspects that Patient may have been responding to internal stimuli during session, as she frequently laughed to herself at inopportune times when she was not being addressed by others in the process group. Initially, this Clinician suspected that this was case. However, later in the process group this Clinician began to notice that she began laughing when another Patient began speaking, which this other Patient found to be disruptive. This Clinician verbally asked Patient three times to quiet down, which only reduced her laughing behavior temporarily. Around the final time this Clinician asked Patient to refrain from laughing the process group ended. This Clinician will monitor this behavior more closely in subsequent group to avoid this behavior becoming a distraction within the group milieu. The rate, latency, and tone of Patients speech was within normal limits. Patient maintained regular eye contact with this Clinician. Patient presented in calm euthymic mood, with congruent affect during the process group. Patient presented as open and cooperative, and was verbally engaged and obtrusive within the group milieu. Patient participated freely in the grounding activity of coloring mandalas during the process group. During one episode--earlier in session--when Patient laughed to herself, this Clinician asked Patient, "What was going on?" Patient reported that she was thinking, "Fucked up thoughts." Jaron Negrete MA, ASSEMBLER [employer] Addendum: 05/25/20 at 0815 by Jaron DARLING Amended: Links added.
[2020-05-24] MEDS: LORazepam 1 MG tablet PO PRN (13:37)
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
[2020-05-24 19:58] VITALS: BP 117/76
[2020-05-24] MEDS: traZODone 50mg tablet PO PRN (20:00)
[2020-05-24] MEDS: polyethylene glycol 3350 17gm powd pack PO SCH (20:01)
[2020-05-24] MEDS: clozapine 100mg tablet PO SCH (20:01)
[2020-05-24] MEDS ORDERED: divalproex sod 250mg ER (24-hour) tablet PO SCH (21:00)
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
[2020-05-25 08:00] VITALS: BP 96/68
[2020-05-25] MEDS: docusate sod 250mg capsule PO SCH ×2 (08:18→20:13)
[2020-05-25] MEDS: mesalamine 1.2gm ER tablet PO SCH ×2 (08:18→20:13)
[2020-05-25] MEDS: calcium polycarbophil 625mg tablet PO SCH ×2 (08:21→20:13)
[2020-05-25] MEDS: LORazepam 1 MG tablet PO PRN (16:40)
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
[2020-05-25 20:05] VITALS: BP 116/82
[2020-05-25] MEDS: polyethylene glycol 3350 17gm powd pack PO SCH (20:13)
[2020-05-25] MEDS: traZODone 50mg tablet PO PRN (20:13)
[2020-05-25] MEDS: clozapine 100mg tablet PO SCH (20:13)
[2020-05-25] MEDS: diphenhydrAMINE 25mg capsule PO PRN (20:56)
[2020-05-25] MEDS ORDERED: divalproex sod 250mg ER (24-hour) tablet PO SCH (21:00)
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
[2020-05-26] MEDS ORDERED: FLU VACC QS2020-21(6MOS UP)/PF 60 MCG/0.5 ML SYRINGE IMVAC ONE (07:15)
[2020-05-26 08:00] VITALS: BP 98/62
[2020-05-26] MEDS: calcium polycarbophil 625mg tablet PO SCH ×2 (08:10→20:27)
[2020-05-26] MEDS: mesalamine 1.2gm ER tablet PO SCH ×2 (08:10→20:28)
[2020-05-26] MEDS: docusate sod 250mg capsule PO SCH ×2 (08:10→20:28)
[2020-05-26] MEDS: nicotine 21mg patch - 24 hr TD SCH (08:12)
--- NOTE | 2020-05-26 10:00 | NUR ---
Group Therapy: Process Group This Clinicians goal for this process group were as follows: (1) Ask scaling questions about Patients current anxiety, depression, and irritability symptoms as a check-in. (2) Provide psychoeducation on emotional and situational stressors. (3) Discuss thoughts and feelings that patients experience when they have experienced an emotional and/or situational stressor. (4) Provide psychoeducation on interventions, as actions patients can take to reduce feelings of emotional escalation caused by situational and emotional stressors. (5) Process Patients thoughts and reflections on this topic within the group milieu. Patient identified experiencing the following levels of anxiety, depression, and anger/irritability while present in the group milieu (0-low; 10-High). Anxiety: 01/01 Depression: 02/01 Anger/irritability: 11/01 Patient presented as properly oriented x4 during the process group. Patient was dressed in nondescript, personal clothing that were appropriate within the milieu. She wore a blue sweatshirt with blue pants with patterned hearts on them. Psychomotor activity was unremarkable. Patient looked tired in the group milieu and reported that she was tired in the group on at least one occasion. Patient's thought content was clear, and concrete. One one occasion near the end of the process group, Patient loudly began to perseverate on the need to call 911 if one was feeling suicidal ideation, in the context of this Clinician discussing the importance of having a list of go-to interventions that one could identify to reduce the acuity of unwanted mental health systems--in this case depression. Patient's thought process was clear, coherent, and linear. This Clinician did not observe Patient responding to any internal stimuli during session. However, this Clinician did notice Patient laughing at an inopportune time in session when she was not being addressed by a fellow peer or this Clinician. The rate, latency, and tone of Patients speech varied between being within normal limits to being increased, and loud. Patient maintained regular eye contact with this Clinician. Patient's mood varied from being calm, and euthymic to dysphoric--irritability--during the process group with congruent affect. Patient presentation varied between open and cooperative early in the process group to being disruptive, and obtrusive near the end of the process group--to the point where this Clinician asked Patient to leave the process group after she repeatedly interrupted him and appeared to be making comments to purposely disrupt the therapeutic atmosphere in the group milieu. Jaron Negrete MA FOAM [employer]DER Addendum: 05/29/20 at 0819 by Jaron Negrete SS Amended: Links added.
[2020-05-26] MEDS: LORazepam 1 MG tablet PO PRN (14:17)
[2020-05-26] MEDS: OLANZapine 5mg rapidly disint. tablet PO PRN (16:50)
[2020-05-26] MEDS: diphenhydrAMINE 25mg capsule PO PRN (16:50)
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
[2020-05-26] MEDS: ibuprofen 200mg tablet PO PRN (18:56)
[2020-05-26 19:00] VITALS: BP 125/90
[2020-05-26] MEDS: clozapine 100mg tablet PO SCH (20:28)
[2020-05-26] MEDS: divalproex sod 250mg ER (24-hour) tablet PO SCH (20:30)
[2020-05-26] MEDS: polyethylene glycol 3350 17gm powd pack PO SCH (20:33)
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
[2020-05-27 07:36] VITALS: BP 80/48
[2020-05-27] MEDS: docusate sod 250mg capsule PO SCH ×2 (08:58→20:36)
[2020-05-27] MEDS: mesalamine 1.2gm ER tablet PO SCH ×2 (08:58→20:39)
[2020-05-27] MEDS: nicotine 21mg patch - 24 hr TD SCH (08:59)
[2020-05-27] MEDS: calcium polycarbophil 625mg tablet PO SCH ×2 (08:59→20:38)
[2020-05-27] MEDS: LORazepam 1 MG tablet PO PRN ×2 (10:21→17:53)
[2020-05-27] MEDS: OLANZapine 5mg rapidly disint. tablet PO PRN (10:21)
[2020-05-27] MEDS: diphenhydrAMINE 25mg capsule PO PRN (10:23)
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
--- NOTE | 2020-05-27 18:21 | NUR ---
COVID TEST Called Dr. Matos for order for Covid test for [facility]. Order is approved, but she advised to wait to administer the rapid test until within 24 hours of discharge so that a second Covid test would not need to be administered prior to discharge.
[2020-05-27 19:00] VITALS: BP 114/78
[2020-05-27] MEDS: polyethylene glycol 3350 17gm powd pack PO SCH (20:36)
[2020-05-27] MEDS: divalproex sod 250mg ER (24-hour) tablet PO SCH (20:39)
[2020-05-27] MEDS: clozapine 100mg tablet PO SCH (20:39)
[2020-05-27] MEDS: acetaminophen 325mg tablet PO PRN (23:20)
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
--- NOTE | 2020-05-28 03:43 | NUR ---
Patient is awake and out of bed, she hovers over the bed of her roommate and stares at her. Patient redirected back to her own bed. Patient requests and was given Tramadol for her back pain along with Ativan 0.5 mg for her anxiety. Patient sits in bed and colors now.
[2020-05-28 08:04] VITALS: BP 100/66
[2020-05-28] MEDS: calcium polycarbophil 625mg tablet PO SCH ×2 (08:22→21:08)
[2020-05-28] MEDS: docusate sod 250mg capsule PO SCH ×2 (08:22→21:07)
[2020-05-28] MEDS: mesalamine 1.2gm ER tablet PO SCH ×2 (08:23→21:08)
[2020-05-28] MEDS: nicotine 21mg patch - 24 hr TD SCH (08:26)
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
[2020-05-28 19:00] VITALS: BP 108/79
[2020-05-28] MEDS: polyethylene glycol 3350 17gm powd pack PO SCH (21:09)
[2020-05-28] MEDS: clozapine 100mg tablet PO SCH (21:09)
[2020-05-28] MEDS: divalproex sod 250mg ER (24-hour) tablet PO SCH (21:09)
[2020-05-28] MEDS: clozapine 25mg tablet PO SCH (21:09)
--- NOTE | 2020-05-29 03:52 | NUR ---
RN PROGRESS NOTE: LEGAL HOLD: LPS for GD THIS SHIFT: Client seeks the attention of a male client. She laughs frequently and is loud, sometimes disturbing other clients watching TV. She readily accepted medications, and was cooperative with assessment. Client listened to music, using headphones and pacing in the sheehan. Client is impulsive. She rotates between pacing in the sheehan, going to her room, and returning to the rec room and laughs while others are watching TV. She does not appear to be interested in watching TV. She has been pleasant and cooperative this shift, and expresses appreciation for care. Client looks forward to discharge. THOUGHT: Linear, paranoid (sometimes thinks others are laughing at her or putting her down) MOOD: Upbeat. AFFECT: Full. APPEARANCE:Neat, clean, appropriately dressed.
[2020-05-29] MEDS: mesalamine 1.2gm ER tablet PO SCH ×2 (08:00→20:22)
[2020-05-29] MEDS: docusate sod 250mg capsule PO SCH ×2 (08:00→20:22)
[2020-05-29] MEDS: calcium polycarbophil 625mg tablet PO SCH ×2 (08:00→20:22)
[2020-05-29] MEDS: nicotine 21mg patch - 24 hr TD SCH (08:00)
[2020-05-29 09:17] VITALS: BP 99/68
[2020-05-29] MEDS: OLANZapine 5mg rapidly disint. tablet PO PRN (12:16)
[2020-05-29] MEDS: diphenhydrAMINE 25mg capsule PO PRN (12:16)
[2020-05-29] MEDS: LORazepam 1 MG tablet PO PRN (14:34)
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
--- NOTE | 2020-05-29 17:58 | NUR ---
NOTE BELOW CHARTED ON THE WRONG PATIENT. PLEASE IGNORE.
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
[2020-05-29 20:00] VITALS: BP 113/77
[2020-05-29] MEDS: polyethylene glycol 3350 17gm powd pack PO SCH (20:22)
[2020-05-29] MEDS: clozapine 25mg tablet PO SCH (20:23)
[2020-05-29] MEDS: clozapine 100mg tablet PO SCH (20:23)
[2020-05-29] MEDS: divalproex sod 250mg ER (24-hour) tablet PO SCH (20:24)
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
[2020-05-30 07:30] VITALS: BP 96/62
[2020-05-30] MEDS: calcium polycarbophil 625mg tablet PO SCH ×2 (07:54→20:21)
[2020-05-30] MEDS: mesalamine 1.2gm ER tablet PO SCH ×2 (07:54→20:21)
[2020-05-30] MEDS: docusate sod 250mg capsule PO SCH ×2 (07:54→20:00)
[2020-05-30] MEDS: nicotine 21mg patch - 24 hr TD SCH (08:00)
[2020-05-30] MEDS: acetaminophen 325mg tablet PO PRN ×2 (12:09→18:43)
--- NOTE | 2020-05-30 12:31 | NUR ---
F/u 05/30: Pt PO 100% ONS and 75-100% PO meals meeting needs. LBM 05/29 receiving colace and miralax. No nutrition concerns at this time. Will continue to monitor. Recommendations: 1) Continue regular diet 2) [place] food preferences: No turkey or pork per diet order 3) Consider discontinuation of Ensure High Protein TID given adequate PO intake of meals meeting estimated nutrient needs 4) Routine bowel care 5) Scaled weights per rx Addendum: 05/30/20 at [address] Amended: Links added.
[2020-05-30] MEDS: LORazepam 1 MG tablet PO PRN (13:57)
--- NOTE | 2020-05-30 17:28 | NUR ---
CM/DCP Presenting Issues: SS informed by [facility] office that pt will be picked up by [facility] otr truck driver on 06/07 and transported to [facility]. Interventions: stage manager informed & DCP updated in MDT. Meds will need to be e-fax to Eddie @ . Plan: SS will continue to monitor dcp. Ira Renteria LCSW Addendum: 05/30/20 at 1731 by Ira Renteria SS Amended: Links added.
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
[2020-05-30] MEDS: diphenhydrAMINE 25mg capsule PO PRN (18:13)
[2020-05-30] MEDS: OLANZapine 5mg rapidly disint. tablet PO PRN (18:13)
[2020-05-30] MEDS: ibuprofen 200mg tablet PO PRN (18:44)
[2020-05-30 20:00] VITALS: BP 124/59
[2020-05-30] MEDS: divalproex sod 250mg ER (24-hour) tablet PO SCH (20:22)
[2020-05-30] MEDS: clozapine 100mg tablet PO SCH (20:23)
[2020-05-30] MEDS: clozapine 25mg tablet PO SCH (20:23)
[2020-05-30] MEDS: polyethylene glycol 3350 17gm powd pack PO SCH (20:24)
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
[2020-05-31] MEDS: docusate sod 250mg capsule PO SCH (08:00)
[2020-05-31] MEDS: calcium polycarbophil 625mg tablet PO SCH ×2 (08:02→20:14)
[2020-05-31] MEDS: mesalamine 1.2gm ER tablet PO SCH ×2 (08:03→20:15)
[2020-05-31] MEDS: nicotine 21mg patch - 24 hr TD SCH (08:05)
[2020-05-31 08:24] VITALS: BP 108/60
[2020-05-31] MEDS: acetaminophen 325mg tablet PO PRN (17:49)
[2020-05-31] MEDS ORDERED: amox tr/potassium clavulanate 875/125mg TAB PO ONE (18:00)
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
[2020-05-31 19:37] VITALS: BP 120/82
[2020-05-31] MEDS: clozapine 25mg tablet PO SCH (20:15)
[2020-05-31] MEDS: polyethylene glycol 3350 17gm powd pack PO SCH (20:15)
[2020-05-31] MEDS: clozapine 100mg tablet PO SCH (20:15)
[2020-05-31] MEDS: divalproex sod 250mg ER (24-hour) tablet PO SCH (20:15)
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
[2020-06-01 08:00] VITALS: BP 98/62
[2020-06-01] MEDS: mesalamine 1.2gm ER tablet PO SCH ×2 (08:14→20:10)
[2020-06-01] MEDS: nicotine 21mg patch - 24 hr TD SCH (08:14)
[2020-06-01] MEDS: calcium polycarbophil 625mg tablet PO SCH ×2 (08:14→20:11)
[2020-06-01] MEDS: amox tr/potassium clavulanate 875/125mg TAB PO SCH ×2 (08:14→18:04)
[2020-06-01] MEDS: ibuprofen 200mg tablet PO PRN (08:23)
--- NOTE | 2020-06-01 10:00 | NUR ---
Group Therapy: Process Group This Clinicians goals for this process group were as follows: (1) Ask scaling questions about Patients current anxiety, depression, and irritability symptoms as a check-in. (2) Share psychoeducation about self-efficacy, and ego strength. (3) Provide psychoeducation on Karpmans Drama triangleVictim, Persecutor, Rescuer dynamic. (4) Share psychoeducation on developing positive ego strengthpositive affirmations, positive self-talk, transitioning from a victim of circumstances to a survivor of circumstances. (5) Process Clients thoughts and reflections on this topic within the group milieu. Prior to the start of the group, as is this Clinician's custom, he spoke with milieu staff to determine who would and would not be appropriate to participate in the process group today. Due to behavioral issues earlier in the day this Clinician and milieu staff determined that Patient's presence would not be appropriate today. Patient did enter the process group, at which time milieu staff professionally asked her to remove herself from group. Patient became verbally escalated cussing at milieu staff and pounding her hands on the table. She was escorted out of the process group by said milieu staff and did not return. Jaron Negrete MA, TOM Addendum: 06/02/20 at 0837 by Jaron Negrete SS Amended: Links added.
[2020-06-01] MEDS ORDERED: haloperidol 5mg tablet PO ONE (10:20)
[2020-06-01] MEDS ORDERED: diphenhydrAMINE 25mg capsule PO ONE (10:20)
[2020-06-01] MEDS ORDERED: LORazepam 1 MG tablet PO ONE (10:20)
[2020-06-01] MEDS: OLANZapine 5mg rapidly disint. tablet PO PRN (11:39)
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
[2020-06-01 19:46] VITALS: BP 108/79
[2020-06-01] MEDS: polyethylene glycol 3350 17gm powd pack PO SCH (20:10)
[2020-06-01] MEDS: divalproex sod 250mg ER (24-hour) tablet PO SCH (20:10)
[2020-06-01] MEDS: clozapine 100mg tablet PO SCH (20:10)
[2020-06-01] MEDS: clozapine 25mg tablet PO SCH (20:10)
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
[2020-06-02 08:00] VITALS: BP 107/71
[2020-06-02] MEDS: mesalamine 1.2gm ER tablet PO SCH ×2 (08:57→20:08)
[2020-06-02] MEDS: amox tr/potassium clavulanate 875/125mg TAB PO SCH ×2 (08:57→17:30)
[2020-06-02] MEDS: nicotine 21mg patch - 24 hr TD SCH (08:58)
[2020-06-02] MEDS: calcium polycarbophil 625mg tablet PO SCH ×2 (08:58→20:08)
[2020-06-02] MEDS: acetaminophen 325mg tablet PO PRN (09:28)
[2020-06-02] MEDS ORDERED: FLU VACC QS2020-21(6MOS UP)/PF 60 MCG/0.5 ML SYRINGE IMVAC ONE (10:00)
--- NOTE | 2020-06-02 10:00 | NUR ---
Group Therapy: Process Group This Clinicians goals for this process group were as follows: (1) Ask scaling questions about patients current anxiety, depression, and irritability symptoms as a check-in. (2) Share psychoeducation about three rules of brief solution-focused problem-solving: A) Stop doing what clearly isnt working, B) Do something different, C) If the different activity works, then do more of it. If it doesnt work, then go back to principle A). (3) Identify examples of thoughts, activities, and behaviors that people do that no longer work for them, or they create more problems than solutions. (4) Identify examples of thoughts, activities, and behaviors that may help create better emotional/behavioral outcomes and lead to good solutions to problems. (5) Engage patients in discussion of the topics shared within the group milieu. Patient identified experiencing the following levels of anxiety, depression, and anger/irritability while present in the group milieu (0-low; 10-High). Anxiety: 2/10 Depression: 0/10 Anger/irritability: 3/10 Patient presented as properly oriented x4 during the process group. Patient was dressed in nondescript, personal clothing that were appropriate within the milieu. Psychomotor activity was unremarkable. Patient's thought content was clear, and concrete. Patient's thought process was clear, coherent, and linear. This Clinician did not observe Patient responding to any internal stimuli during session. The rate, latency, and tone of Patients speech was within normal limits. Patient maintained regular eye contact with this Clinician. Patient presented in calm euthymic mood, with congruent affect during the process group. Patient presented as open and cooperative, and was verbally engaged and nonobtrusive within the group milieu. Patient was an active verbal participant in discussing the three rules of brief solution-focused problem-solving thinking. She interacted appropriately with her peers during the process group. Jaron Negrete MA, TOM Addendum: 06/05/20 at 0810 by Jaron Negrete Amended: Links added.
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
[2020-06-02] MEDS: diphenhydrAMINE 25mg capsule PO PRN (14:55)
[2020-06-02] MEDS: OLANZapine 5mg rapidly disint. tablet PO PRN (14:55)
[2020-06-02] MEDS: LORazepam 1 MG tablet PO PRN (15:39)
[2020-06-02] MEDS: traMADol 50MG tablet PO PRN (18:11)
[2020-06-02 20:01] VITALS: BP 124/82
[2020-06-02] MEDS: clozapine 100mg tablet PO SCH (20:08)
[2020-06-02] MEDS: polyethylene glycol 3350 17gm powd pack PO SCH (20:08)
[2020-06-02] MEDS: clozapine 25mg tablet PO SCH (20:08)
[2020-06-02] MEDS: ibuprofen 200mg tablet PO PRN (20:08)
[2020-06-02] MEDS: divalproex sod 250mg ER (24-hour) tablet PO SCH (20:08)
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
--- NOTE | 2020-06-03 02:03 | NUR ---
Pt is having diarrhea. Might be a side effect from the antibiotic she is currently taking.
[2020-06-03 08:00] VITALS: BP 93/68
[2020-06-03] MEDS: calcium polycarbophil 625mg tablet PO SCH ×2 (08:00→20:18)
[2020-06-03] MEDS: amox tr/potassium clavulanate 875/125mg TAB PO SCH ×2 (08:13→17:15)
[2020-06-03] MEDS: nicotine 21mg patch - 24 hr TD SCH (08:13)
[2020-06-03] MEDS: mesalamine 1.2gm ER tablet PO SCH ×2 (08:22→20:18)
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
[2020-06-03] MEDS: traMADol 50MG tablet PO PRN (12:08)
[2020-06-03] MEDS ORDERED: benzocaine (Anbesol) 12ml bottle MM PRN (12:55)
[2020-06-03] MEDS ORDERED: polyethylene glycol 3350 17gm powd pack PO PRN (13:20)
[2020-06-03] MEDS: OLANZapine 5mg rapidly disint. tablet PO PRN (14:06)
[2020-06-03] MEDS: diphenhydrAMINE 25mg capsule PO PRN (14:06)
[2020-06-03] MEDS: LORazepam 1 MG tablet PO PRN (17:11)
[2020-06-03] MEDS: acetaminophen 325mg tablet PO PRN ×2 (17:15→20:49)
[2020-06-03 19:35] VITALS: BP 118/81
[2020-06-03] MEDS: divalproex sod 250mg ER (24-hour) tablet PO SCH (20:17)
[2020-06-03] MEDS: clozapine 100mg tablet PO SCH (20:18)
[2020-06-03] MEDS: clozapine 25mg tablet PO SCH (20:18)
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
[2020-06-04 07:13] VITALS: BP 89/59
[2020-06-04] MEDS: calcium polycarbophil 625mg tablet PO SCH ×2 (08:00→20:13)
[2020-06-04] MEDS: mesalamine 1.2gm ER tablet PO SCH ×2 (08:26→20:14)
[2020-06-04] MEDS: amox tr/potassium clavulanate 875/125mg TAB PO SCH ×2 (08:26→17:43)
[2020-06-04] MEDS: nicotine 21mg patch - 24 hr TD SCH (08:27)
[2020-06-04] MEDS: acetaminophen 325mg tablet PO PRN (09:53)
--- NOTE | 2020-06-04 11:05 | NUR ---
1:1 session: Met with pt in her room appeared in positive mood and stated she is a little anxious anticipating discharge mid week to [facility] and is excited. Stated she has worked hard here at [facility] to learn more on self control and be more aware and listen to her body as a way of recognizing tension, anxiety frustration and process before reacting which is what she said would get her in trouble was quickly reacting before thinking and has been practicing this particular skill on this unit. Stated she hopes to have a positive experience at her new placement and put into practice what she learned in [facility]. NEGRITO Chen
[2020-06-04 11:30] LABS: BASOPHILS % (AUTO) 0.7 % (0-1); EOSINOPHILS % (AUTO) 0.2 % (0-6); HEMATOCRIT 40.2 % (35.0-45.0); HEMOGLOBIN 13.3 g/dl (12.0-16.0); LYMPHOCYTES # (AUTO) 2.3 X10'3 (1.1-4.8); LYMPHOCYTES % (AUTO) 32.8 % (21-51); MEAN CORPUSCULAR HEMOGLOBIN 28.9 PG (27.0-31.0); MEAN CORPUSCULAR HGB CONC 33.1 g/dL (33.0-36.5); MEAN CORPUSCULAR VOLUME 87.3 FL (78-98); MEAN PLATELET VOLUME 6.4 FL (7.4-10.4); MONOCYTES # (AUTO) 0.6 X10'3 (0-0.9); MONOCYTES % (AUTO) 8.7 % (2-12); NEUTROPHILS # (AUTO) 4.1 X10'3 (1.8-7.7); NEUTROPHILS % (AUTO) 57.6 % (42-75); PLATELET COUNT 356 X10'3 (140-440); RED BLOOD COUNT 4.61 X10'6 (4.20-5.60); RED CELL DISTRIBUTION WIDTH 14.1 % (11.5-14.5); WHITE BLOOD COUNT 7.1 X10'3 (4.5-11.0)
[2020-06-04 11:40] LABS: ALANINE AMINOTRANSFERASE 56 U/L (12-78); ALBUMIN 3.3 G/DL (3.4-5.0); ALBUMIN/GLOBULIN RATIO 0.7 (1.1-1.5); ALKALINE PHOSPHATASE 96 IU/L (46-116); ANION GAP 4 (8-16); ASPARTATE AMINO TRANSFERASE 27 U/L (10-37); BILIRUBIN,TOTAL 0.2 MG/DL (0.1-1.0); BLOOD UREA NITROGEN 14 MG/DL (7-18); BUN/CREATININE RATIO 20.6 (6.6-38.0); CALCIUM 8.4 MG/DL (8.5-10.1); CHLORIDE 103 MMOL/L (99-107); CREATININE 0.68 MG/DL (0.40-0.90); GLUCOSE 121 MG/DL (70-104); POTASSIUM 4.3 MMOL/L (3.5-5.1); SODIUM 133 MMOL/L (135-145); TOTAL CARBON DIOXIDE 25.8 MMOL/L (24-32); eGFR > 90 ML/MIN
[2020-06-04] MEDS: clozapine 25mg tablet PO SCH ×2 (11:44→20:14)
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
[2020-06-04] MEDS: LORazepam 1 MG tablet PO PRN ×2 (15:11→16:08)
[2020-06-04 19:30] VITALS: BP 124/87
[2020-06-04] MEDS: divalproex sod 250mg ER (24-hour) tablet PO SCH (20:13)
[2020-06-04] MEDS: clozapine 100mg tablet PO SCH (20:14)
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
[2020-06-05 07:56] VITALS: BP 98/66
[2020-06-05] MEDS: calcium polycarbophil 625mg tablet PO SCH ×2 (08:00→20:05)
[2020-06-05] MEDS: mesalamine 1.2gm ER tablet PO SCH ×2 (08:46→20:05)
[2020-06-05] MEDS: clozapine 25mg tablet PO SCH ×2 (08:46→20:06)
[2020-06-05] MEDS: nicotine 21mg patch - 24 hr TD SCH (08:46)
[2020-06-05] MEDS: amox tr/potassium clavulanate 875/125mg TAB PO SCH ×2 (08:46→17:44)
--- NOTE | 2020-06-05 10:00 | NUR ---
Group Therapy: Process Group This Clinicians goals for this process group were as follows: (1) Ask scaling questions about Patients current anxiety, depression, and irritability symptoms as a check-in. (2) Share psychoeducation about the importance of being able to identify regular activities, support people, and thoughts (Anchors) that contribute to mental health well-being and stability. (3) Share psychoeducation about how the gradual removal of said activities, people and behaviors may lead to the erosion of mental well-being and stability. (4) Encourage patients to identify support anchors that they need to maintain in their lives that will promote their mental and emotional well-being. (5) Engage Patients in discussion of the topics shared within the group milieu. Patient identified experiencing the following levels of anxiety, depression, and anger/irritability while present in the group milieu (0-low; 10-High). Anxiety: 6/10 Depression: 0/10 Anger/irritability: 1010 Patient presented as properly oriented x4 during the process group. Patient wore a black face covering, and a black sweatshirt with matching black pants that were appropriate within the milieu. Psychomotor activity was unremarkable. Patient's thought content was clear, and concrete. Patient's thought process was clear, coherent, and linear. This Clinician did not observe Patient responding to any internal stimuli during session. The rate, latency, and tone of Patients speech was within normal limits. Patient maintained regular eye contact with this Clinician. Patient presented in calm euthymic mood, with congruent affect during the process group. Patient presented as open and cooperative, and was verbally engaged and nonobtrusive within the group milieu. Patient was an active participate in the discussion of emotional grounding interventions and activities (anchors) that one could utilize to promote optimal baseline mental health. Patient shared during the process group that having a good, "Mcd[employer]," or positive support people to assist her in maintaining optimal/baseline mental health was very important to her as it related to her maintaining stability in her mental health. Jaron Negrete MA, TIRE MANAGER Addendum: 06/06/20 at 0830 by Jaron DARLING Amended: Links added.
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
[2020-06-05] MEDS: LORazepam 1 MG tablet PO PRN (18:21)
[2020-06-05] MEDS: OLANZapine 5mg rapidly disint. tablet PO PRN (18:21)
[2020-06-05 19:40] VITALS: BP 120/85
[2020-06-05] MEDS: divalproex sod 250mg ER (24-hour) tablet PO SCH (20:06)
[2020-06-05] MEDS: clozapine 100mg tablet PO SCH (20:06)
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
[2020-06-06 08:00] VITALS: BP 136/72
[2020-06-06] MEDS: mesalamine 1.2gm ER tablet PO SCH ×2 (08:17→20:06)
[2020-06-06] MEDS: calcium polycarbophil 625mg tablet PO SCH ×2 (08:17→20:07)
[2020-06-06] MEDS: nicotine 21mg patch - 24 hr TD SCH (08:18)
[2020-06-06] MEDS: clozapine 25mg tablet PO SCH ×2 (08:18→20:07)
[2020-06-06] MEDS: amox tr/potassium clavulanate 875/125mg TAB PO SCH ×2 (08:22→18:01)
[2020-06-06] MEDS ORDERED: DIVA-81 PO (10:49)
[2020-06-06] MEDS ORDERED: DIVA500T9 PO (10:49)
[2020-06-06] MEDS ORDERED: CLOZ25TA36 PO (10:49)
--- NOTE | 2020-06-06 10:54 | NUR ---
DISCHARGE 06/07/20 Nury will be picked up at 7:15 AM on 06/07/20 to get transported to [place] in [place]. Medications need to be called in to [facility]. Medications: Fax to [facility] @ along with face sheet. [facility] [phone] TOM Rene
--- NOTE | 2020-06-06 12:13 | NUR ---
Reassessment: Patient's PO intake fluctuates however overall averaging 75-100% PO intake meeting estimated nutrient needs. [facility] 06/06. No nutrition intervention warranted at this time. Will continue to follow. Recommendations: 1) Continue regular diet 2) [place] food preferences: No turkey or pork per diet order 3) Routine bowel care 4) Scaled weights per rx Addendum: 06/06/20 at [address] Amended: Links added.
[2020-06-06] MEDS: LORazepam 1 MG tablet PO PRN (13:00)
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
[2020-06-06] MEDS: divalproex sod 250mg ER (24-hour) tablet PO SCH (20:07)
[2020-06-06] MEDS: traZODone 50mg tablet PO PRN (20:07)
[2020-06-06] MEDS: clozapine 100mg tablet PO SCH (20:07)
[2020-06-06 20:53] VITALS: BP 116/83
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
--- NOTE | 2020-06-07 07:23 | NUR ---
DISCHARGE NOTE: Patient awoke at 0630 to get ready for discharge. Belongings were inventoried on [employer]. MRSA swab performed. Pictures taken. Patient is excited to leave and requesting belongings early. Patient denies SI and is discharged in stable condition to [facility]. [facility] is providing transportation. All belongings given to patient at discharge.
== END 2020-06-07 07:23 | disposition short-term general hospital (02) | DRG 885 ==
LOC: ADULT MH 18:59
PROVIDERS: ADMIT Psychiatry & Neurology Psychiatry; ATTEND Psychiatry & Neurology Psychiatry
DX: F25.0 Schizoaffective disorder, bipolar type (principal); B19.20 Unspecified viral hepatitis C without hepatic coma; K51.90 Ulcerative colitis, unspecified, without complications; R45.851 Suicidal ideations; F12.10 Cannabis abuse, uncomplicated; F15.10 Other stimulant abuse, uncomplicated; F17.210 Nicotine dependence, cigarettes, uncomplicated; K59.00 Constipation, unspecified; L98.9 Disorder of the skin and subcutaneous tissue, unspecified; F29 Unspecified psychosis not due to a substance or known physiological condition; Z23 Encounter for immunization; Z88.8 Allergy status to other drugs, medicaments and biological substances; Z79.899 Other long term (current) drug therapy
CPT/HCPCS: 36415; 71045; 80053; 80164; 81025; 82550; 85007; 85025; 87081; 87635; 99285; J1200; J1630; J2060; Q0163; Q0177; Q2039